=== PATIENT | male | born 1930 | race Caucasian/White ===

== ENCOUNTER 2016-10-21 02:33 | Inpatient (IN) | payer OTHER ==
[~2016-10-21] VITALS: Ht 172.7 cm; Wt 88.1 kg
[2016-10-21] VITALS (9 sets, daily range): BP systolic 116–146; BP diastolic 64–75; PULSE 50–109; TEMP 36.3–36.9; O2SAT 91–97; Ht 172.7 cm; Wt 88.1 kg
[~2016-10-21 02:33] MED LIST: ASCA500 PO; ASPEC325 PO; ATEN50TA8 PO; CHOL100010 PO; EZET10TA41 PO; FLM4 PO; GARLIQUE; HYDC25 PO; LISI40TA PO; OMEG10007 PO; SAW PALMETTO; VITA400C15 PO; VITAMIN B COMPLEX; VITATAB19
[2016-10-21] MEDS ORDERED: ASPIRIN 324 MG CHEW PO STA (02:44)
[2016-10-21] MEDS ORDERED: NITROGLYCERIN 0.4 MG SL PER TAB CHARGE SL STA (02:44)
[2016-10-21] MEDS ORDERED: NITROGLYCERIN OINT 2% 1GM PACKET EXT ONE (02:45)
[2016-10-21 03:04] LABS: BASO % 0.7 %; BASO ABS # 0.05 K/uL (0-0.2); COMPLETE YES; EOS % 3.7 %; HEMATOCRIT 41.3 % (42-52); IG% 0.3 %; LYMPH % 33.7 %; LYMPH ABS # 2.58 K/uL (1.2-3.4); MEAN CELL VOLUME 92.8 fL (80-100); MEAN CORPUSCULAR HEMOGLOBIN 29.4 pg (25-34); MEAN CORPUSCULAR HGB CONC 31.7 g/dl (32-36); MEAN PLATELET VOLUME 9.1 fL (7.4-10.4); MONO % 9.1 %; NEUT % 52.5 %; PLATELET COUNT 211 K/uL (130-400); RED BLOOD COUNT 4.45 M/uL (4.7-6.1); WHITE BLOOD COUNT 7.66 K/uL (4.8-10.8)
[2016-10-21 03:15] LABS: ISTAT CREATININE 1.2 mg/dl (0.6-1.3); ISTAT HEMOGLOBIN 13.3 g/dl (14.0-18.0); ISTAT IONIZED CALCIUM 1.27 mmol/l (1.12-1.32)
[2016-10-21 03:15] LABS: BUN/CREATININE RATIO 22.8 (10-20); CALCIUM 9.1 mg/dl (8.5-10.1); CREATININE 1.3 mg/dl (0.60-1.40); POTASSIUM 4.2 mmol/L (3.5-5.1)
[2016-10-21 03:18] LABS: POINT OF CARE TROPONIN I 0.03 ng/ml (0-0.045)
[2016-10-21] MEDS ORDERED: FUROSEMIDE 40 MG/4 ML VIAL IV STA (03:25)
[2016-10-21 03:26] LABS: ALB/GLOB RATIO 1.1 (0.9-2); THYROID STIMULATING HORMONE 9.08 uIu/ml (0.300-4.500)
[2016-10-21] MEDS ORDERED: HYDR12.55 PO (03:56)
[2016-10-21] MEDS ORDERED: ATOR-24 PO (03:56)
[2016-10-21] MEDS ORDERED: ASPI325T45 PO (03:56)
[2016-10-21] MEDS ORDERED: TAMS0.4C38 PO (03:56)
[2016-10-21] MEDS ORDERED: LEVALBUTEROL/IPRATROPIUM NEB INH STA (03:58)
[2016-10-21] MEDS ORDERED: LEVALBUTEROL/IPRATROPIUM NEB INH PRN (04:00)
[2016-10-21] MEDS ORDERED: IPRATROPIUM BROMIDE NEB SOLN 0.02% 2.5 ML VIAL INH STA (04:02)
[2016-10-21] MEDS ORDERED: LEVALBUTEROL 1.25MG/0.5ML NEB INH STA (04:02)
[2016-10-21] MEDS ORDERED: LEVALBUTEROL 1.25MG/0.5ML NEB INH PRN (04:15)
[2016-10-21] MEDS ORDERED: IPRATROPIUM BROMIDE NEB SOLN 0.02% 2.5 ML VIAL INH PRN (04:15)
[2016-10-21 04:55] LABS: ARTERIAL BLD GAS O2 SATURATION 95.7 % (90-95); ARTERIAL BLOOD GAS BASE EXCESS 3.8 mEq/L (-9-1.8); ARTERIAL BLOOD GAS HCO3 31 mmol/L (19-24); ARTERIAL BLOOD GAS PO2 84 mm/Hg (80-95); ARTERIAL BLOOD GAS pH 7.36 (7.35-7.45)
[2016-10-21 04:56] LABS: ALLEN TEST POS (POS); O2 ADMINISTRATION 4 L
[2016-10-21] MEDS ORDERED: MoRPHine SULFATE 4 MG/ML 1 ML CARP\\VIAL IV PRN (05:15)
[2016-10-21] MEDS ORDERED: PROMETHAZINE HCL INJ 12.5 MG in SODIUM CHLORIDE 0.9% 50ML 50 ML IV PRN (05:15)
[2016-10-21] MEDS ORDERED: TRAMADOL HCL 50 MG TAB PO PRN (05:15)
[2016-10-21] MEDS ORDERED: ACETAMINOPHEN 325 MG TAB PO PRN (05:15)
--- NOTE | 2016-10-21 05:22 | EMERGENCY ROOM VISIT NOTE ---
History First contact with patient: 02:38 Chief Complaint: CHEST PAIN Stated Complaint: CHEST PAIN Nursing Triage Summary: pt brought to main ED by ALS services for chest pain and difficulty breathing. ALS reports pt was woken from sleep approx 1am by cp/sob. pt reports "I don't sleep well anyway." ALS reports pt was 86% on RA and edema in bilateral lower legs. pt does not have home oxygen. denies hx of CHF. pt states he does not have chest pain at this time. pt states "I may have had a heart attack in the past. I don't know." pt alert and oriented x4. breathing regularly and independently, use of accessory muscles. pt denies pain at this time. History of Present Illness The patient is a 86 year old male who presents to the Emergency Room with complaints of left-sided chest pain and shortness of breath that began approximately 60 minutes prior to arrival. The patient states that his discomfort awoke him from sleep. He did contact EMS, and on arrival he was 86% on room air. The patient does not use home oxygen. He has a history of cardiac disease but not COPD or CHF. He has had some swelling into his bilateral lower legs for the past few days. He does not report recent fever or chills. No coughing. He does not have abdominal pain or difficulty using the bathroom. He rates his discomfort a 7/10, dull, nonradiating. Review of Systems More than 10 systems were reviewed and otherwise negative with the exception of history of present illness. Past Medical/Surgical History Medical Problems: (1) Respiratory failure, acute Family History No pertinent family history Social History Smoking Status: Former Smoker Current/Historical Medications Scheduled Aspirin (Aspirin), 325 MG PO DAILY Atenolol (Tenormin), 50 MG PO DAILY Atorvastatin (Lipitor), 40 MG PO DAILY Hydrochlorothiazide (Hydrochlorothiazide), 1 TAB PO DAILY Lisinopril (Zestril), 40 MG PO HS Tamsulosin Hcl (Flomax), 0.4 MG PO DAILY Allergies Coded Allergies: Niacin (Verified Allergy, Unknown, `, 07/14/11) Physical Exam Vital Signs Date Time Temp Pulse Resp B/P Pulse Ox O2 Delivery O2 Flow Rate FiO2 10/21/16 04:22 109 22 95 Nasal Cannula 4.0 10/21/16 04:12 103 23 153/80 96 Nasal Cannula 4.0 10/21/16 03:42 111 23 169/90 97 Nasal Cannula 4.0 10/21/16 03:10 119 28 162/91 97 Nasal Cannula 4.0 10/21/16 02:53 97 Nasal Cannula 2.0 10/21/16 02:48 97 Nasal Cannula 4.0 10/21/16 02:47 86 Room Air 10/21/16 02:47 36.9 106 28 158/85 86 Room Air 10/21/16 02:42 112 Physical Exam VITALS: Vitals are noted on the nurse's note and reviewed by myself. Vital signs stable. GENERAL: White male who is seated comfortably in his ER bed. He is on a nasal cannula and is answering questions appropriately. HEART: Tachycardic rate with regular rhythm LUNGS: Coarse breath sounds with scattered crackles in the bilateral lower muro. Upper muro sound diminished ABDOMEN: Positive normal bowel sounds x 4. Soft, nontender, without masses or organomegaly. No guarding or rebound tenderness. MUSCULOSKELETAL: 3+ pretibial edema appreciated bilateral. NEURO: Patient was alert and oriented to person place and time. CN II through XII grossly intact. Medical Decision & Procedures Laboratory Results 10/21/16 02:21 Red Blood Count 4.45, Mean Corpuscular Volume 92.8, Mean Corpuscular Hemoglobin 29.4, Mean Corpuscular Hemoglobin Concent 31.7, Mean Platelet Volume 9.1, Neutrophils (%) (Auto) 52.5, Lymphocytes (%) (Auto) 33.7, Monocytes (%) (Auto) 9.1, Eosinophils (%) (Auto) 3.7, Basophils (%) (Auto) 0.7, Neutrophils # (Auto) 4.03, Lymphocytes # (Auto) 2.58, Monocytes # (Auto) 0.70, Eosinophils # (Auto) 0.28, Basophils # (Auto) 0.05 10/21/16 02:21 Test 10/21/16 02:21 10/21/16 02:44 10/21/16 02:58 10/21/16 03:02 White Blood Count 7.66 K/uL (4.8-10.8) Red Blood Count 4.45 M/uL (4.7-6.1) Hemoglobin 13.1 g/dL (14.0-18.0) Hematocrit 41.3 % (42-52) Mean Corpuscular Volume 92.8 fL (80-100) Mean Corpuscular Hemoglobin 29.4 pg (25-34) Mean Corpuscular Hemoglobin Concent 31.7 g/dl (32-36) Platelet Count 211 K/uL (130-400) Mean Platelet Volume 9.1 fL (7.4-10.4) Neutrophils (%) (Auto) 52.5 % Lymphocytes (%) (Auto) 33.7 % Monocytes (%) (Auto) 9.1 % Eosinophils (%) (Auto) 3.7 % Basophils (%) (Auto) 0.7 % Neutrophils # (Auto) 4.03 K/uL (1.4-6.5) Lymphocytes # (Auto) 2.58 K/uL (1.2-3.4) Monocytes # (Auto) 0.70 K/uL (0.11-0.59) Eosinophils # (Auto) 0.28 K/uL (0-0.5) Basophils # (Auto) 0.05 K/uL (0-0.2) RDW Standard Deviation 53.3 fL (36.4-46.3) RDW Coefficient of Variation 15.7 % (11.5-14.5) Immature Granulocyte % (Auto) 0.3 % Immature Granulocyte # (Auto) 0.02 K/uL (0.00-0.02) Est Creatinine Clear Calc Drug Dose 45.6 ml/min Estimated GFR () 57.7 Estimated GFR (Non- 49.8 BUN/Creatinine Ratio 22.8 (10-20) Calcium Level 9.1 mg/dl (8.5-10.1) Magnesium Level 2.0 mg/dl (1.8-2.4) Total Bilirubin 0.4 mg/dl (0.2-1) Aspartate Amino Transf (AST/SGOT) 70 U/L (15-37) Alanine Aminotransferase (ALT/SGPT) 70 U/L (12-78) Alkaline Phosphatase 105 U/L (45-117) Troponin I 0.034 ng/ml (0-0.045) Total Protein 7.1 gm/dl (6.4-8.2) Albumin 3.7 gm/dl (3.4-5.0) Globulin 3.4 gm/dl (2.5-4.0) Albumin/Globulin Ratio 1.1 (0.9-2) Lipase 136 U/L (73-393) Thyroid Stimulating Hormone (TSH) 9.080 uIu/ml (0.300-4.500) Free Thyroxine 0.94 ng/dl (0.80-1.60) Bedside Troponin I 0.030 ng/ml (0-0.045) FT-Jdu-J-Type Natriuretic Peptide 4784 pg/ml (0-1800) Bedside Hemoglobin 13.3 g/dl (14.0-18.0) Bedside Hematocrit 39 % (42-52) Bedside Sodium 146 mEq/L (135-144) Bedside Potassium 4.1 mEq/L (3.3-5.0) Bedside Chloride 103 mEq/L (101-112) Bedside Total CO2 29 mEq/l (24-31) Anion Gap 19.0 mmol/L (16-25) Bedside Blood Urea Nitrogen 31 mg/dl (7-18) Bedside Creatinine 1.2 mg/dl (0.6-1.3) Bedside Glucose (other) 139 mg/dl (70-99) Bedside Ionized Calcium (Stormy) 1.27 mmol/l (1.12-1.32) Test 10/21/16 04:38 Medications Administered Medications (Trade) Dose Ordered Sig/Kael Route Start Time Stop Time Status Last Admin Dose Admin Nitroglycerin (Nitroglycerin 2% Oint) 1 inch NOW ONCE EXT 10/21/16 02:45 10/21/16 02:48 DC 10/21/16 03:09 1 INCH Nitroglycerin (Nitrostat Tab) 0.4 mg NOW STAT SL 10/21/16 02:44 10/21/16 02:48 DC 10/21/16 03:07 0.4 MG Furosemide (Lasix Inj) 40 mg NOW STAT IV 10/21/16 03:25 10/21/16 03:26 DC 10/21/16 03:35 40 MG Atenolol (Tenormin Tab) 50 mg 0402 STAT PO 10/21/16 04:02 10/21/16 04:03 DC 10/21/16 04:18 50 MG Ipratropium Waldron (Atrovent 0.02% 0.5MG/2.5ML Neb) 0.5 mg NOW STAT INH 10/21/16 04:02 10/21/16 04:03 DC 10/21/16 04:22 0.5 MG Levalbuterol (Xopenex 1.25MG/ 0.5ML Neb) 1.25 mg NOW STAT INH 10/21/16 04:02 10/21/16 04:03 DC 10/21/16 04:22 1.25 MG ED Course Physical exam and history were performed. Nursing notes and EMR were reviewed. Patient appears to have left-sided chest pain and shortness of breath for the past roughly 1 hour. The patient was hypoxic on EMS presentation to his home. Now that he is here and has oxygen he is much more comfortable. IV access was established and labs were obtained. The case was discussed with my attending physician, Dr. Bosch, who remained closely involved in patient care and decision making. The patient was medicated as above and chest x-ray was obtained. EKG was sinus tachycardia at 109 bpm with PVC's, right bundle branch block, and age indeterminant lateral infarct. EKG is with significant changes when compared to EKG of 07/19/2007 The patient's blood work is as above. He does not have a significant elevated white blood cell count. He is mildly anemic. There is no gross electrolyte imbalance. His troponin 1 is negative here in the department. The patient's BNP was elevated at nearly 5000. He was given 40 mg IV Lasix. Overall the patient does not appear stable for discharge home. He appears to be in acute respiratory failure. The case was discussed with the on-call hospitalist, Dr. Traore, who agrees to evaluate the patient here in the emergency department. Please see Dr. Traore's dictation for patient course, plan, and disposition. The chart was completed utilizing [employer] Voice Recognition Software. Grammatical errors, random word insertions, pronoun errors, and incomplete sentences are an occasional consequence of this system due to software limitations, ambient noise, and hardware issues. Any formal questions or concerns about the content, text, or information contained within the body of this dictation should be directly addressed to the provider for clarification. . Medical Decision Differential diagnosis includes, but is not limited to: Myocardial infarction, dysrhythmia, pericarditis, pneumothorax, aortic aneurysm/dissection, DVT/PE, anxiety, GERD, PUD, electrolyte imbalance, thyroid disorder, pneumonia, bronchitis, pancreatitis, and others Impression Primary Impression: Respiratory failure, acute Departure Information Referrals Elton Torres III, M.D. (PCP) Patient Instructions [facility]
--- NOTE | 2016-10-21 05:24 | EMERGENCY ROOM VISIT NOTE ---
ED Visit Note First contact with patient: 02:38 I have personally evaluated and examined this patient. I agree with assessment and plan of Kehinde Olea PA-C. 86 yr old male with acute chest pain and SHOB. Exam consistent with acute CHF exacerbation. EKG with lateral ST depressions though no STEMI. EKG is acutely changed from previous but that was 9 yrs ago.
[2016-10-21 05:53] LABS: URINE APPEARANCE CLEAR (CLEAR); URINE BILIRUBIN NEG (NEG); URINE COLOR YELLOW; URINE EPITHELIAL CELL AUTO 0-5 /lpf (0-5); URINE NITRITE NEG (NEG); URINE SPECIFIC GRAVITY 1.014 (1.000-1.030); UROBILINOGEN NEG (NEG); ZZUR CULT IF INDIC CLEAN CATCH YES
[2016-10-21 05:58] LABS: MANUAL MICROSCOPIC REQUIRED? NO; REVIEW REQ? NO
[2016-10-21 06:45] LABS: PARTIAL THROMBOPLASTIN RATIO 1.1; PROTHROMBIN TIME (PATIENT) 10.5 SECONDS (9.0-12.0)
--- NOTE | 2016-10-21 06:51 | HISTORY & PHYSICAL EXAMINATION ---
DATE OF ADMISSION: 10/21/2016 PRIMARY CARE DOCTOR: Dr. Torres History was obtained from the patient and records. CHIEF COMPLAINT: Shortness of breath. HISTORY OF PRESENT ILLNESS: Medical history is significant for silent heart attack as per patient, hypertension, past tobacco abuse, urolithiasis and PVD status post surgery. Recent confinement was under Vascular Surgery service last July 2011 for L carotid stenosis sp CEA. 2D echo at that time showed an EF of 55-60%, LVH. Akinetic inferior wall consistent with prior infarct. In the few weeks, patient noted intermittent ni ankle swelling, some abdominal distention, transient shortness of breath especially on exertion and orthopnea. Px mentioned the intermittent ankle swelling to the PCP on last visit last month. Last night, the patient woke up from sleep with central chest tightness, non- radiating, shortness of breath and usual cough symptoms productive of white sputum. At the Emergency Room, the patient received Lasix and nitropaste for CHF. MEDICAL HISTORY: As above. 2004 colonoscopy; diverticulosis and polyps. SURGERIES: Carotid endarterectomy and cataract surgery. HOME MEDICATIONS: Include; aspirin, atenolol, Lipitor, HCTZ, lisinopril and Flomax. ALLERGIES: TO NIACIN. FAMILY HISTORY: Diabetes. PERSONAL AND SOCIAL HISTORY: Past tobacco abuse. No chronic intake of alcoholic beverages. Retired [employer]. REVIEW OF SYSTEMS: As per HPI. All other ROS negative. PHYSICAL EXAMINATION: VITAL SIGNS: Blood pressure was noted to be 158/85, pulse rate 106, RR 28, temperature 36.9 and sats 86 on room air, later 97 on four liters. GENERAL: Noted to be obese, min respiratory distress. SKIN: Pallor. HEENT: Alopecia. Pale palpebral conjunctivae. Dry mucosa. Nasal cannula is in place. NECK: Short neck. LUNGS: Decreased breath sounds. HEART: Tachycardic. ABDOMEN: Some distension. NT EXTREMITIES: Bilateral lower extremity edema. no tenderness NEUROLOGIC: No gross focality except for some L facial asymmetry (? duration). LABORATORIES: Hemoglobin 13 hematocrit 41.3 white cell count of 7.66 and platelets noted to be 211. Sodium noted to be 147, potassium 4.2, chloride 109, CO2 32, BUN 30, creatinine 1.3 and glucose 134. trop 0.034 ABG, pH 7.36, pCO2 of 55, pO2 84 95% on 4 liters Chest x-ray as per my interpretation : cardiomegaly, congestion EKG as per my interpretation : rate 110, sinus tachycardia, left axis deviation , LAFB, RBBB, Q-waves in the inferior leads, PRWP ASSESSMENT: 1. Acute hypoxemic resp failure 2 to congestive heart failure symptoms brewing over the last few weeks. 2. History of silent myocardial infarction as per patient. 3. hx peripheral vascular disease status post surgery 4. hypertension, slightly elevated 5. hyperlipidemia on statin therapy 6. anemia (baseline outpx Hg of 14 from 12/2011) 7. past tobacco abuse. PLAN: PCU supplemental O2. Nebs p.r.n. diuretic therapy continue home BB, ACEI 2D echo RE CHF. strict IOs. Daily weights. Cardiology consult for CHF. The patient known to Dr. Fraga. Anemia workup. DVT prophylaxis, Lovenox subQ. Full code. MTDD
--- NOTE | 2016-10-21 07:18 | DIAGNOSTIC IMAGING REPORT ---
CHEST ONE VIEW PORTABLE HISTORY: Difficulty breathing. Atypical Chest pain COMPARISON: Chest 07/19/2007. FINDINGS: Cardiac silhouette is mildly enlarged. This is increased in size. There are trace bilateral pleural effusions. Diffuse interstitial and vascular thickening has developed. This likely represents pulmonary edema. No pneumothorax. IMPRESSION: Mild pulmonary edema, trace bilateral pleural effusions, and cardiomegaly. Electronically signed by: Roland Patel M.D. 10/21/2016 7:17 AM Dictated Date/Time: 10/21/2016 7:15 AM
[2016-10-21] MEDS ORDERED: FUROSEMIDE INJ 40 MG in SYRINGE 0 ML IV ONE (09:00)
[2016-10-21] MEDS ORDERED: ATORVASTATIN 40 MG TAB PO SCH (09:00)
[2016-10-21] MEDS ORDERED: ENOXAPARIN 40 MG/0.4 ML SYR SC SCH (09:00)
[2016-10-21] MEDS ORDERED: TAMSULOSIN HCL 0.4 MG CAP PO SCH (09:00)
[2016-10-21] MEDS ORDERED: ASPIRIN 325 MG ECTAB PO SCH (09:00)
--- NOTE | 2016-10-21 09:59 | ECHOCARDIOGRAM REPORT ---
*NOTICE TO RECEIVING REPUBLICAN AGENCY This information is strictly Confidential and protected under [place] law. [place] law prohibits you from making any further disclosure of this information unless further disclosure is expressly permitted by the written consent of the person to whom it pertains or is authorized by law. A general authorization for the release of medical or other information is not sufficient for this purpose. Hospital accepts no responsibility if the information is made available to any other person, INCLUDING THE PATIENT. Interpretation Summary * Name: WYATT MCCARTNEY Study Date: 10/21/2016 06:38 AM BP: 146/73 mmHg * Patient Location: C.2T\S\S229\S\1 HR: 80 * : 1930 (M/d/yyy) Gender: Male Height: 68 in * Age: 86 yrs Ethnicity: CA Weight: 201 lb * Ordering Physician: Rizwan Traore * Referring Physician: Self, Referred * Performed By: Italia Dorsey RDCS * * Reason For Study: CHF * BSA: 2.0 m2 * The study was technically adequate. * Compared to prior study, changes are noted. * -- Conclusions -- * Left ventricular systolic function is severely reduced. * Ejection Fraction = 20-25%. * There is posterior wall akinesis. * There is inferior wall akinesis. * The septum is severely hypokinertic to akinetic. * The remaining wall segments are hypokinetic. * There is moderate mitral regurgitation. * There is mild tricuspid regurgitation. * The estimated systolic PAP is 52mmHg. Procedure Details * A contrast injection of Definity was performed to improve assessment of LV function. * Contrast was injected into an intravenous site in the left arm. * One vial of Definity ultrasound contrast was diluted in normal saline to a total volume of 10 ml. A total of '2' ml of solution was administered during imaging. * Lot # [id number] of Definity utilized for procedure. * Expiration date SEP 30. * The attending nurse who injected the contrast agent was SAW HAYNES RN. Left Ventricle * The left ventricle is moderately dilated. * There is no thrombus. * The LV wall thickness is mildly increased in segments with normal wall motion. * Left ventricular systolic function is severely reduced. * Ejection Fraction = 20-25%. * There is posterior wall akinesis. * There is inferior wall akinesis. * The septum is severely hypokinertic to akinetic. The remaining wall segments are hypokinetic. Right Ventricle * The right ventricle is grossly normal size. * The right ventricular systolic function is qualitatively normal. Atria * The left atrium is moderately dilated. * The right atrium is mildly dilated. Mitral Valve * There is mild mitral annular calcification. * There is no mitral valve stenosis. * There is moderate mitral regurgitation. Tricuspid Valve * The tricuspid valve anatomy is normal. * There is no tricuspid stenosis. * There is mild tricuspid regurgitation. * The estimated systolic PAP is 52mmHg. Aortic Valve * The aortic valve is not well visualized. * Aortic valve sclerosis mild, without significant aortic valvular stenosis. * No hemodynamically significant valvular aortic stenosis. * Mild aortic regurgitation. Pulmonic Valve * The pulmonary valve is inadequately visualized, but the Doppler data is adequate for interpretation. * There is no pulmonic valvular stenosis. * Mild pulmonic valvular regurgitation. Great Vessels * The aortic root is normal size. Pericardium/Pleural * There is no pericardial effusion. Great Vessels * Normal inferior vena cava size and collapsability with sniff indicates a normal right atrial pressure of 3 mmHg Left Ventricular Diastolic Function * Grade I diastolic dysfunction, (abnormal relaxation pattern). MMode 2D Measurements and Calculations IVSd 1.6 cm IVSs 2.1 cm LVIDd 6.1 cm LVIDs 5.3 cm LVPWd 0.68 cm LVPWs 0.70 cm IVS/LVPW 2.3 FS 11.9 % EDV(Teich) 183.8 ml ESV(Teich) 137.2 ml EF(Teich) 25.3 % EDV(cubed) 221.9 ml ESV(cubed) 151.6 ml EF(cubed) 31.7 % % IVS thick 37.6 % % LVPW thick 3.5 % LV mass(C)d 289.5 grams LV mass(C)dI 141.3 grams/m\S\2 LV mass(C)s 328.6 grams LV mass(C)sI 160.4 grams/m\S\2 SV(Teich) 46.5 ml SI(Teich) 22.7 ml/m\S\2 SV(cubed) 70.3 ml SI(cubed) 34.3 ml/m\S\2 LVAd ap4 50.1 cm\S\2 LVLd ap4 9.9 cm EDV(MOD-sp4) 209.6 ml EDV(sp4-el) 215.2 ml LVAs ap4 40.8 cm\S\2 LVLs ap4 9.2 cm ESV(MOD-sp4) 147.6 ml ESV(sp4-el) 152.7 ml EF(MOD-sp4) 29.6 % EF(sp4-el) 29.1 % LVAd ap2 48.8 cm\S\2 LVLd ap2 9.9 cm EDV(MOD-sp2) 198.3 ml EDV(sp2-el) 203.2 ml LVAs ap2 40.6 cm\S\2 LVLs ap2 9.3 cm ESV(MOD-sp2) 147.3 ml ESV(sp2-el) 150.1 ml EF(MOD-sp2) 25.7 % EF(sp2-el) 26.1 % LVLd %diff 0.19 % EDV(MOD-bp) 203.7 ml LVLs %diff 0.84 % ESV(MOD-bp) 148.2 ml EF(MOD-bp) 27.2 % SV(MOD-sp4) 61.9 ml SI(MOD-sp4) 30.2 ml/m\S\2 SV(MOD-sp2) 50.9 ml SI(MOD-sp2) 24.9 ml/m\S\2 SV(MOD-bp) 55.5 ml SI(MOD-bp) 27.1 ml/m\S\2 SV(sp4-el) 62.6 ml SI(sp4-el) 30.5 ml/m\S\2 SV(sp2-el) 53.0 ml SI(sp2-el) 25.9 ml/m\S\2 Doppler Measurements and Calculations MV E max ramya 76.6 cm/sec MV A max ramya 103.3 cm/sec MV E/A 0.74 MV dec time 0.18 sec Ao V2 max 121.6 cm/sec Ao max PG 5.9 mmHg Ao max PG (full) 4.3 mmHg LV V1 max PG 1.6 mmHg LV V1 max 63.1 cm/sec TR max ramya 351.6 cm/sec
[2016-10-21 11:10] LABS: FERRITIN 24.2 ng/ml (8.0-388.0)
--- NOTE | 2016-10-21 12:52 | Cardiology Consultation ---
Cardiology Consultation Date of Service October 21, 2016. (Veronique Ferris, IGNACIO) Cardiology Consultation Cardiology Consultation: Reason: Hypoxia/CHF Consulting Physician: Dr. Kilgore Attending Physician: Dr. Fraga HPI: Srinivas is a 86-year-old male who has a past medical history significant for silent AL, dating back to 2007 noted on echocardiogram with posteroinferior hypokinesis, and abnormal nuclear stress test in 2010 with larger inferior/ posterior scar. Med management recommended. He has updated 2D echo in 2012 during admission post left CEA demonstrating preserved LV function. He has not followed with cardiology on a regular basis. PCP is Dr. Torres. Other history includes hypertension, carotid stenosis, dyslipidemia, and obesity. Patient was admitted last evening with respiratory failure/hypoxia suggestive of acute heart failure exacerbation with evidence of volume overload. He was started on IV diuretic therapy and supplemental O2. Over the last month, patient noted worsening dyspnea with exertional activities , orthopnea/PND with difficulty sleeping at night due to SOB, LE edema and weight gain. He denied recent or recurrent chest pain. No dizziness, syncope or near syncope. States he has been taking all meds as prescribed as outpatient. He has been on HCTZ for diuretic therapy and BP control. At time of consult, patient feeling better. Still with LE edema and mild dyspnea when ambulating in room, but improved from admission. No cough, fever, chills. Orthopnea improved last night. He noted mild chest pain when in ER last night, but symptoms improved with oxygen supplementation. He participated in PT /OT this AM without complaints. REVIEW OF SYSTEMS: Pertinent positives noted above. Otherwise a 10-point system review is unremarkable. PAST MEDICAL HISTORY: 1. 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 2. Ischemic cardiomyopathy. Ejection fraction by nuclear study estimated at 35% with inferior hypokinesis in 2010. Preserved LV function per repeat echo in 2011. 3. Hypertension. 4. Dyslipidemia. 5. Obesity. 6. Carotid stenosis. 7. Actinic keratosis. SOCIAL HISTORY: Prior tobacco abuse x 55 years, quit in 2007. No alcohol use. FAMILY HISTORY: Noncontributory. ALLERGIES: No known drug allergies. Reported Home Medications Medications Dose Route/Sig Max Daily Dose Days Date Category Aspirin 325 Mg Tab 325 Mg PO DAILY 10/21/16 Reported Lipitor (Atorvastatin Calcium) 40 Mg Tab 40 Mg PO DAILY 10/21/16 Reported Flomax (Tamsulosin Hcl) 0.4 Mg Cap 0.4 Mg PO DAILY 10/21/16 Reported Hydrochlorothiazide 12.5 Mg Tab 1 Tab PO DAILY 90 10/21/16 Reported Zestril (Lisinopril) 40 Mg Tab 40 Mg PO HS 07/19/07 Reported Tenormin (Atenolol) 50 Mg Tab 50 Mg PO DAILY 07/19/07 Reported PHYSICAL EXAM: Last 8 Hrs Date Time Temp Pulse Resp B/P Pulse Ox O2 Delivery O2 Flow Rate FiO2 10/21/16 11:25 Nasal Cannula 4.0 10/21/16 11:08 36.3 61 20 125/70 97 Nasal Cannula 4.0 10/21/16 10:02 68 96 10/21/16 07:49 36.9 66 20 125/64 91 Nasal Cannula 4.0 10/21/16 07:25 Nasal Cannula 4.0 10/21/16 06:05 36.7 80 20 146/73 93 Nasal Cannula 4.0 10/21/16 06:05 36.7 80 20 146/73 93 Nasal Cannula 4.0 10/21/16 05:38 84 20 150/65 97 10/21/16 05:30 95 20 150/65 97 Nasal Cannula 4.0 10/21/16 05:00 94 20 150/66 95 Nasal Cannula 4.0 GENERAL: NAD, awake, alert, and oriented x3. Obese. NECK: Supple without overt JVD in the upright position. HEART: Regular with a normal S1 and S2. There is no audible murmur, rub or gallop. LUNGS: Decreased breath sounds with faint rales b/l. ABDOMEN: Soft and nontender. No organomegaly or bruit. Positive bowel sounds. EXTREMITIES: 1+ pretibial edema NEUROLOGIC: Demonstrates no gross motor deficit. DATA: Echocardiogram reviewed, per report: * Compared to prior study, changes are noted. * -- Conclusions -- * Left ventricular systolic function is severely reduced. * Ejection Fraction = 20-25%. * There is posterior wall akinesis. * There is inferior wall akinesis. * The septum is severely hypokinetic to akinetic. * The remaining wall segments are hypokinetic. * There is moderate mitral regurgitation. * There is mild tricuspid regurgitation. * The estimated systolic PAP is 52mmHg EKGs reviewed on admission Sinus tachycardia with occasional Premature ventricular complexes and Fusion complexes Left axis deviation Right bundle branch block Possible Lateral infarct , age undetermined Inferior infarct (cited on or before 19-JUN-2005) Abnormal ECG When compared with ECG of 19-JUL-2007 13:21, Fusion complexes are now Present Premature ventricular complexes are now Present Telemetry reviewed - NSR with IVCD and PVC's. No sustained arrhythmias. Chest xray on admission - IMPRESSION: Mild pulmonary edema, trace bilateral pleural effusions, and cardiomegaly. Last 24 Hours Test 10/21/16 02:21 10/21/16 02:58 10/21/16 03:02 10/21/16 04:29 White Blood Count 7.66 K/uL Red Blood Count 4.45 M/uL Hemoglobin 13.1 g/dL Hematocrit 41.3 % Mean Corpuscular Volume 92.8 fL Mean Corpuscular Hemoglobin 29.4 pg Mean Corpuscular Hemoglobin Concent 31.7 g/dl Platelet Count 211 K/uL Mean Platelet Volume 9.1 fL Neutrophils (%) (Auto) 52.5 % Lymphocytes (%) (Auto) 33.7 % Monocytes (%) (Auto) 9.1 % Eosinophils (%) (Auto) 3.7 % Basophils (%) (Auto) 0.7 % Neutrophils # (Auto) 4.03 K/uL Lymphocytes # (Auto) 2.58 K/uL Monocytes # (Auto) 0.70 K/uL Eosinophils # (Auto) 0.28 K/uL Basophils # (Auto) 0.05 K/uL RDW Standard Deviation 53.3 fL RDW Coefficient of Variation 15.7 % Immature Granulocyte % (Auto) 0.3 % Immature Granulocyte # (Auto) 0.02 K/uL Sodium Level 147 mmol/L Potassium Level 4.2 mmol/L Chloride Level 109 mmol/L Carbon Dioxide Level 32 mmol/L Anion Gap 6.0 mmol/L 19.0 mmol/L Blood Urea Nitrogen 30 mg/dl Creatinine 1.30 mg/dl Est Creatinine Clear Calc Drug Dose 45.6 ml/min Estimated GFR () 57.7 Estimated GFR (Non- 49.8 BUN/Creatinine Ratio 22.8 Random Glucose 134 mg/dl Calcium Level 9.1 mg/dl Magnesium Level 2.0 mg/dl Total Bilirubin 0.4 mg/dl Aspartate Amino Transf (AST/SGOT) 70 U/L Alanine Aminotransferase (ALT/SGPT) 70 U/L Alkaline Phosphatase 105 U/L Troponin I 0.034 ng/ml Total Protein 7.1 gm/dl Albumin 3.7 gm/dl Globulin 3.4 gm/dl Albumin/Globulin Ratio 1.1 Lipase 136 U/L Thyroid Stimulating Hormone (TSH) 9.080 uIu/ml Free Thyroxine 0.94 ng/dl Bedside Troponin I 0.030 ng/ml AC-[id number]-Type Natriuretic Peptide 4784 pg/ml Bedside Hemoglobin 13.3 g/dl Bedside Hematocrit 39 % Bedside Sodium 146 mEq/L Bedside Potassium 4.1 mEq/L Bedside Chloride 103 mEq/L Bedside Total CO2 29 mEq/l Bedside Blood Urea Nitrogen 31 mg/dl Bedside Creatinine 1.2 mg/dl Bedside Glucose (other) 139 mg/dl Bedside Ionized Calcium (Stormy) 1.27 mmol/l Prothrombin Time 10.5 SECONDS Prothromb Time International Ratio 1.0 Activated Partial Thromboplast Time 27.7 SECONDS Partial Thromboplastin Ratio 1.1 Test 10/21/16 04:38 10/21/16 05:40 10/21/16 10:00 10/21/16 10:30 Arterial Blood pH 7.36 Arterial Blood Partial Pressure CO2 55 mmHg Arterial Blood Partial Pressure O2 84 mm/Hg Arterial Blood HCO3 31 mmol/L Arterial Blood Oxygen Saturation 95.7 % Arterial Blood Base Excess 3.8 mEq/L Arterial Blood Gas Delivery 4 L Ronald Test POS Urine Color YELLOW Urine Appearance CLEAR Urine pH 5.0 Urine Specific [place] 1.014 Urine Protein NEG Urine Glucose (UA) NEG Urine Ketones NEG Urine Occult Blood 1+ Urine Nitrite NEG Urine Bilirubin NEG Urine Urobilinogen NEG Urine Leukocyte Esterase MODERATE Urine WBC (Auto) >30 /hpf Urine RBC (Auto) 5-10 /hpf Urine Hyaline Casts (Auto) 1-5 /lpf Urine Epithelial Cells (Auto) 0-5 /lpf Urine Bacteria (Auto) 2+ Transferrin % Saturation % 18 % Absolute Reticulocyte Count 0.10 10^6/uL Percent Reticulocyte Count 2.1 % Iron Level 64 mcg/dl Total Iron Binding Capacity 323 mcg/dl Transferrin 255 mg/dl Ferritin 24.2 ng/ml Troponin I 2.720 ng/ml Vitamin B12 Level 1792 pg/mL Folate > 24.00 ng/mL Prior data reviewed - Echocardiogram during admission in 2011: Left ventricular systolic function is normal. Ejection Fraction = 55-60%. There is borderline concentric left ventricular hypertrophy. There are regional wall motion abnormalities as specified. There is mild to moderate mitral regurgitation. There is mild tricuspid regurgitation. Right ventricular systolic pressure is elevated at 40-50mmHg. Grade I diastolic dysfunction, ( abnormal relaxation pattern). Nuclear Lexiscan in 2010 completed at [facility]- extensive inferior and posterior scar with a calculated ejection fraction of 30 to 35% FINAL IMPRESSIONS: 1. Respiratory failure/ acute hypoxia secondary to Acute systolic HF exacerbation with evidence of volume overload on exam 2. Likely ischemic cardiomyopathy with interval decline in LV function, EF currently 20-25%, last echo in 2011 was normal. Repeat troponin this AM elevated at 2. Likely demand ischemia. 3. History of silent inferior AL, noted on echo/nuclear scan dating back to 2007. Given he was asymptomatic and nuclear Lexiscan with old scar and no inducible ischemia, med management recommended at that time. 4. Hypertension 5. Former tobacco abuse. 5. Dyslipidemia. 6. Obesity. PLAN AND RECOMMENDATIONS: Patient currently asymptomatic. Repeat IV furosemide 40 mg today. Monitor I+O's. Discontinue atenolol in favor of evidence based beta becky, Toprol XL 50 mg daily. Continue lisinopril. Likely will need furosemide on discharge in place of HCTZ. Need to consider ischemic work up once volume status has improved. Case discussed with Dr. Fraga. Will follow. (Veronique Ferris, PA-C) Cardiology Attending Physician: Patient seen and examined at the bedside. Patient admits to gradual weight gain and progressive SOB over the past few months. Last night SOB worsened with + orthopnea and PND prompting ED evaluation. Hypoxic upon arrival to ED. Feeling much better after 2 doses of lasix with approximately 1400cc urine output. Offers no complaints currently. Son is present at bedside. PE: VSS. Gen: NAD, AAOx3. Heart: Reg, Normal S1S2. No murmur. Lungs: +Rales B/L at the base. Ext: 2+ pretibial edema. A/P: Agree with above PAThanhC history, physical exam, assessment and plan. Atenolol transitioned to metoprolol. Patient receive 2 doses of lasix today. Will reassess BMP in AM prior to additional diuretic therapy. Mildly elevated troponin likely secondary to acute CHF, hypoxia, demand ischemia. Continue DANILO inhibitor. Will need ischemic evaluation in future when volume status improved and referral to EP for ICD. Ag Fraga DO, FACC (Gilberto Farga, DO)
[2016-10-21] MEDS ORDERED: NURSING DECISION MEDICATION ORDER SCH (13:00)
--- NOTE | 2016-10-21 17:06 | Progress Note ---
Medicine Progress Note Date & Time of Visit: October 21, 2016 at 16:38. Subjective Pt was seen and examined Sitting very comfortable in chair with no distress Pt said that his breathing feels much better today he said that he walked in the hallway today with no discomfort Denies any chest pain, palpitation, dizziness Objective Last 8 Hrs Date Time Temp Pulse Resp B/P Pulse Ox O2 Delivery O2 Flow Rate FiO2 10/21/16 16:00 Nasal Cannula 4.0 10/21/16 15:17 36.3 50 18 116/69 95 Nasal Cannula 3.0 10/21/16 11:25 Nasal Cannula 4.0 10/21/16 11:08 36.3 61 20 125/70 97 Nasal Cannula 4.0 10/21/16 10:02 68 96 Physical Exam: General- No acute distress Head- atraumatic Eyes- PERRL, EOMI ENT- oropharynx clear Neck- supple, no JVD Lungs- Poor air entry Heart- regular rhythm; no murmur Abdomen- normal bowel sounds, soft, nontender Extremities- +edema, no calf tenderness Neuro- alert, oriented x 3; PERRL, EOMI; no facial palsy Skin- warm & dry Laboratory Results: Last 24 Hours Test 10/21/16 02:21 10/21/16 02:58 10/21/16 03:02 10/21/16 04:29 White Blood Count 7.66 K/uL Red Blood Count 4.45 M/uL Hemoglobin 13.1 g/dL Hematocrit 41.3 % Mean Corpuscular Volume 92.8 fL Mean Corpuscular Hemoglobin 29.4 pg Mean Corpuscular Hemoglobin Concent 31.7 g/dl Platelet Count 211 K/uL Mean Platelet Volume 9.1 fL Neutrophils (%) (Auto) 52.5 % Lymphocytes (%) (Auto) 33.7 % Monocytes (%) (Auto) 9.1 % Eosinophils (%) (Auto) 3.7 % Basophils (%) (Auto) 0.7 % Neutrophils # (Auto) 4.03 K/uL Lymphocytes # (Auto) 2.58 K/uL Monocytes # (Auto) 0.70 K/uL Eosinophils # (Auto) 0.28 K/uL Basophils # (Auto) 0.05 K/uL RDW Standard Deviation 53.3 fL RDW Coefficient of Variation 15.7 % Immature Granulocyte % (Auto) 0.3 % Immature Granulocyte # (Auto) 0.02 K/uL Sodium Level 147 mmol/L Potassium Level 4.2 mmol/L Chloride Level 109 mmol/L Carbon Dioxide Level 32 mmol/L Anion Gap 6.0 mmol/L 19.0 mmol/L Blood Urea Nitrogen 30 mg/dl Creatinine 1.30 mg/dl Est Creatinine Clear Calc Drug Dose 45.6 ml/min Estimated GFR () 57.7 Estimated GFR (Non- 49.8 BUN/Creatinine Ratio 22.8 Random Glucose 134 mg/dl Calcium Level 9.1 mg/dl Magnesium Level 2.0 mg/dl Total Bilirubin 0.4 mg/dl Aspartate Amino Transf (AST/SGOT) 70 U/L Alanine Aminotransferase (ALT/SGPT) 70 U/L Alkaline Phosphatase 105 U/L Troponin I 0.034 ng/ml Total Protein 7.1 gm/dl Albumin 3.7 gm/dl Globulin 3.4 gm/dl Albumin/Globulin Ratio 1.1 Lipase 136 U/L Thyroid Stimulating Hormone (TSH) 9.080 uIu/ml Free Thyroxine 0.94 ng/dl Bedside Troponin I 0.030 ng/ml LE-[id number]-Type Natriuretic Peptide 4784 pg/ml Bedside Hemoglobin 13.3 g/dl Bedside Hematocrit 39 % Bedside Sodium 146 mEq/L Bedside Potassium 4.1 mEq/L Bedside Chloride 103 mEq/L Bedside Total CO2 29 mEq/l Bedside Blood Urea Nitrogen 31 mg/dl Bedside Creatinine 1.2 mg/dl Bedside Glucose (other) 139 mg/dl Bedside Ionized Calcium (Stormy) 1.27 mmol/l Prothrombin Time 10.5 SECONDS Prothromb Time International Ratio 1.0 Activated Partial Thromboplast Time 27.7 SECONDS Partial Thromboplastin Ratio 1.1 Test 10/21/16 04:38 10/21/16 05:40 10/21/16 10:00 10/21/16 10:30 Arterial Blood pH 7.36 Arterial Blood Partial Pressure CO2 55 mmHg Arterial Blood Partial Pressure O2 84 mm/Hg Arterial Blood HCO3 31 mmol/L Arterial Blood Oxygen Saturation 95.7 % Arterial Blood Base Excess 3.8 mEq/L Arterial Blood Gas Delivery 4 L Ronald Test POS Urine Color YELLOW Urine Appearance CLEAR Urine pH 5.0 Urine Specific [place] 1.014 Urine Protein NEG Urine Glucose (UA) NEG Urine Ketones NEG Urine Occult Blood 1+ Urine Nitrite NEG Urine Bilirubin NEG Urine Urobilinogen NEG Urine Leukocyte Esterase MODERATE Urine WBC (Auto) >30 /hpf Urine RBC (Auto) 5-10 /hpf Urine Hyaline Casts (Auto) 1-5 /lpf Urine Epithelial Cells (Auto) 0-5 /lpf Urine Bacteria (Auto) 2+ Transferrin % Saturation % 18 % Absolute Reticulocyte Count 0.10 10^6/uL Percent Reticulocyte Count 2.1 % Iron Level 64 mcg/dl Total Iron Binding Capacity 323 mcg/dl Transferrin 255 mg/dl Ferritin 24.2 ng/ml Troponin I 2.720 ng/ml Vitamin B12 Level 1792 pg/mL Folate > 24.00 ng/mL Test 10/21/16 16:02 10/21/16 16:20 Creatine Kinase MB Ratio Date/Time Source Procedure Growth Status 10/21/16 05:40 Urine , Clean Catch Urine Culture Pending Received Assessment & Plan ACUTE HYPOXIC RESPIRATORY FAILURE 2nd TO ACUTE SYSTOLIC HF EXACERBATION cxr showed showed mild pulmonary edema, trace bilateral pleural effusions, and cardiomegaly. 2D ECHO showed: * Left ventricular systolic function is severely reduced. * Ejection Fraction = 20-25%. * There is posterior wall akinesis. * There is inferior wall akinesis. * The septum is severely hypokinertic to akinetic. * The remaining wall segments are hypokinetic. * There is moderate mitral regurgitation. Received 80 mg Lasix IV. Monitor I/O Atenolol changed to metoprolol by cardio clinically improved Cardiology on board ELEVATED TROPONIN Troponin increased above 2. Possible related to demand ischemia denies any chest pain EKG didn't showed any significant ischemic changes will follow 3rd set cardiac marker Continue statin, aspirin and beta becky repeat EKG in am Cardiology on board HTN BP stable continue monitor BP CAROTID STENOSIS stable ABNORMAL UA Asymptomatic, afebrile, no leukocytosis urine culture pending DVT Px on subq lovenox CODE STATUS FULL CODE Consultants: Cardio Current Inpatient Medications: Current Inpatient Medications Medications (Trade) Dose Ordered Sig/Kael Route Start Time Stop Time Status Last Admin Dose Admin Ipratropium [place] (Atrovent 0.02% 0.5MG/2.5ML Neb) 0.5 mg Q4H PRN INH 10/21/16 04:15 11/20/16 04:14 Levalbuterol (Xopenex 1.25MG/ 0.5ML Neb) 1.25 mg Q4H PRN INH 10/21/16 04:15 11/20/16 04:14 Enoxaparin Sodium (Lovenox Inj) 40 mg Q24H SC 10/21/16 09:00 11/20/16 08:59 10/21/16 10:53 40 MG Acetaminophen (Tylenol Tab) 650 mg Q4H PRN PO 10/21/16 05:15 11/20/16 05:14 Nitroglycerin (Nitrostat Tab) 0.4 mg UD PRN SL 10/21/16 05:15 11/20/16 05:14 Lisinopril 40 mg 40 mg HS PO 10/21/16 21:00 11/20/16 20:59 Promethazine HCl/ Sodium Chloride (Phenergan Inj/ Nss 50ml) 50.5 ml @ 204 mls/hr Q6H PRN IV 10/21/16 05:15 11/20/16 05:14 Tramadol HCl (Ultram Tab) 25 mg Q6H PRN PO 10/21/16 05:15 11/20/16 05:14 Morphine Sulfate (MoRPHine SULFATE INJ) 4 mg Q3H PRN IV 10/21/16 05:15 11/04/16 05:14 Metoprolol Succinate (Toprol Xl Tab) 50 mg QAM PO 10/22/16 09:00 11/21/16 08:59 Aspirin (Ecotrin Tab) 325 mg HS PO 10/21/16 21:00 11/20/16 20:59 Atorvastatin Calcium (Lipitor Tab) 40 mg HS PO 10/21/16 21:00 11/20/16 20:59 Tamsulosin HCl (Flomax Cap) 0.4 mg HS PO 10/21/16 21:00 11/20/16 20:59
--- NOTE | 2016-10-21 18:47 | Progress Note ---
Progress Note Date of Service October 21, 2016. Progress Note Pt was seen and examined Sitting comfortable with no distress he said that he feels fine he denies any chest pain, palpitation and dizziness his last troponin in to 5 trop--.> 0.034-->2.72--->5.05 case discussed with Flakito Ernst that agreed to start on heparin drip for now. will continue monitor pt closely in tele.
[2016-10-21] MEDS: HEPARIN 25,000 UNIT/500ML D5W 500 ML IV PRN (19:58)
[2016-10-21] MEDS ORDERED: HEPARIN IV BOLUS 6,000 UNIT in SYRINGE 0 ML IV ONE (20:00)
[2016-10-21] MEDS: TAMSULOSIN HCL 0.4 MG CAP PO SCH (20:01)
[2016-10-21] MEDS: ASPIRIN 325 MG ECTAB PO SCH (20:01)
[2016-10-21] MEDS: ATORVASTATIN 40 MG TAB PO SCH (20:01)
[2016-10-21] MEDS: LISINOPRIL 40 MG TAB PO SCH (20:25)
[2016-10-22] VITALS (9 sets, daily range): BP systolic 106–147; BP diastolic 45–72; PULSE 47–77; TEMP 36.4–36.8; O2SAT 96–100
[2016-10-22] MEDS: NITROGLYCERIN 0.4 MG SL PER TAB CHARGE SL PRN ×3 (00:37→02:26)
[2016-10-22 02:46] LABS: BASO % 0.2 %; BASO ABS # 0.02 K/uL (0-0.2); COMPLETE YES; EOS % 0.2 %; HEMATOCRIT 36.1 % (42-52); IG% 0.2 %; LYMPH % 16.7 %; LYMPH ABS # 1.76 K/uL (1.2-3.4); MEAN CELL VOLUME 91.9 fL (80-100); MEAN CORPUSCULAR HEMOGLOBIN 30.5 pg (25-34); MEAN CORPUSCULAR HGB CONC 33.2 g/dl (32-36); MEAN PLATELET VOLUME 9.2 fL (7.4-10.4); MONO % 12.8 %; NEUT % 69.9 %; PLATELET COUNT 202 K/uL (130-400); RED BLOOD COUNT 3.93 M/uL (4.7-6.1); WHITE BLOOD COUNT 10.55 K/uL (4.8-10.8)
[2016-10-22 03:06] LABS: BUN/CREATININE RATIO 35.5 (10-20); CALCIUM 8.8 mg/dl (8.5-10.1); CREATININE 1.3 mg/dl (0.60-1.40); POTASSIUM 3.9 mmol/L (3.5-5.1)
[2016-10-22 03:14] LABS: PARTIAL THROMBOPLASTIN RATIO 4.6
[2016-10-22] MEDS: HEPARIN 25,000 UNIT/500ML D5W 500 ML IV PRN ×3 (04:22→15:10)
--- NOTE | 2016-10-22 06:43 | Clinical Documentation Query ---
CLINICAL DOCUMENTATION QUERY 86 year old male with hx of silent [place] who presents to the Emergency Room with complaints of left-sided chest pain, shortness of breath, Acute systolic CHF, and rising Troponin's In your clinical opinion is this patient being managed for: ( ) [place] ( ) Other explanation of clinical findings (Please Explain) ( ) Unable to determine (Please Define) ( ) Need to Discuss ( ) Not Agree The medical record reflects the following clinical findings, treatment, and risk factors. Clinical Indicators: Reduction in EF (20-25%), posterior and inferior wall akinesis, hypokinetic to akinetic septum, all remaining high hypokinetic. EKG showing inferior infarct. trop--.> 0.034-->2.72--->5.05. Acute systolic CHF Treatment: Heparin gtt, IV Lasix, ASA, Lisinopril, Toprol, SL Nitro Risk Factors: Age, hx of [place], Please clarify and document your clinical opinion in the progress notes and discharge summary. Terms such as "probable", "suspected", "likely", "questionable", "possible", or "still to be ruled out" are acceptable. IF IN AGREEMENT, YOU MUST DOCUMENT ABOVE DIAGNOSTIC STATEMENT IN DAILY PROGRESS NOTES AND DISCHARGE SUMMARY. This document is not part of the patient's record. Thank You, Aleks Marroquin, CLOVER [phone]
--- NOTE | 2016-10-22 06:45 | Clinical Documentation Query ---
CLINICAL DOCUMENTATION QUERY 86 year old male with hx of silent [place] who presents to the Emergency Room with complaints of left-sided chest pain, shortness of breath, Acute systolic CHF, and rising Troponin's In your clinical opinion is this patient being managed for: ( x ) [place] ( ) Other explanation of clinical findings (Please Explain) ( ) Unable to determine (Please Define) ( ) Need to Discuss ( ) Not Agree The medical record reflects the following clinical findings, treatment, and risk factors. Clinical Indicators: Reduction in EF (20-25%), posterior and inferior wall akinesis, hypokinetic to akinetic septum, all remaining high hypokinetic. EKG showing inferior infarct. Trop--.> 0.034-->2.72--->5.05. Acute systolic CHF. Treatment: Heparin gtt, IV Lasix, ASA, Lisinopril, Toprol, SL Nitro Risk Factors: Age, hx of [place], Please clarify and document your clinical opinion in the progress notes and discharge summary. Terms such as "probable", "suspected", "likely", "questionable", "possible", or "still to be ruled out" are acceptable. IF IN AGREEMENT, YOU MUST DOCUMENT ABOVE DIAGNOSTIC STATEMENT IN DAILY PROGRESS NOTES AND DISCHARGE SUMMARY. This document is not part of the patient's record. Thank You, Aleks Marroquin RN [phone]
--- NOTE | 2016-10-22 06:47 | Clinical Documentation Query ---
CLINICAL DOCUMENTATION QUERY 86 year old male with hx of silent [place] who presents to the Emergency Room with complaints of left-sided chest pain, shortness of breath, Acute systolic CHF, EKG changes, and rising Troponin's In your clinical opinion is this patient being managed for: (x ) [place] ( ) Other explanation of clinical findings (Please Explain) ( ) Unable to determine (Please Define) ( ) Need to Discuss ( ) Not Agree The medical record reflects the following clinical findings, treatment, and risk factors. Clinical Indicators: Reduction in EF (20-25%), posterior and inferior wall akinesis, hypokinetic to akinetic septum, all remaining high hypokinetic. EKG showing inferior infarct. trop--.> 0.034-->2.72--->5.05. Acute systolic CHF Treatment: Heparin gtt, IV Lasix, ASA, Lisinopril, Toprol, SL Nitro Risk Factors: Age, hx of [place], Please clarify and document your clinical opinion in the progress notes and discharge summary. Terms such as "probable", "suspected", "likely", "questionable", "possible", or "still to be ruled out" are acceptable. IF IN AGREEMENT, YOU MUST DOCUMENT ABOVE DIAGNOSTIC STATEMENT IN DAILY PROGRESS NOTES AND DISCHARGE SUMMARY. This document is not part of the patient's record. Thank You, Aleks Marroquin, CLOVER [phone]
[2016-10-22] MEDS: METOPROLOL SUCC 50MG EXT REL TAB PO SCH (07:53)
[2016-10-22] MEDS ORDERED: FUROSEMIDE INJ 40 MG in SYRINGE 0 ML IV SCH (09:00)
[2016-10-22 11:10] LABS: PARTIAL THROMBOPLASTIN RATIO 3.1
--- NOTE | 2016-10-22 11:50 | Cardiology Follow-Up ---
Subjective General Date of Service: October 22, 2016. Chief Complaint: CHF/NSTEMI Pt evaluation today including: conversation w/ patient, conversation w/ family , physical exam, chart review, lab review, review of studies, review of inpatient medication list History of Present Illness Patient feeling better this AM. SOB/orthopnea greatly improved. He noted back pain (below left scapula) last night when laying in bed, radiating to left side/ rib cage. symptoms improved upon repositioning and sitting up in bed. He denies recurrent chest pain. No SOB. No orthopnea. Edema improving. No palpitations, dizziness, syncope or near syncope. Allergies Coded Allergies: Niacin (Verified Allergy, Unknown, `, 07/14/11) Social History Smoking Status: Former Smoker Hx Tobacco Use In Past Year?: No Hx Alcohol Use - Type And Amou: No Hx Substance Use - Type And Am: No Review of Systems Respiratory: No cough, No dyspnea at rest, No hemoptysis, No shortness of breath, No sputum, No wheezing Cardiac: + edema, No PND, No chest pain, No orthopnea, No palpitations Physical Exam Vital Signs Last Vital Signs Documentation Date Time Temp Pulse Resp B/P Pulse Ox O2 Delivery O2 Flow Rate FiO2 10/22/16 10:58 36.5 54 18 106/45 96 Nasal Cannula 3.0 Physical Exam Constitutional: General Apperance: overweight Level of Distress: NAD Psychiatric: Mental Status: active & alert Orientation: to time, to place, to person Head: normocephalic Eyes: Pupils: PERRLA Neck: supple Lungs: Auscultation: no wheezing, no rales/crackles, deminished air movement Cardiovascular: Heart Auscultation: RRR, normal S1, normal S2, no murmurs Abdomen: Bowel Sounds: normal Inspection & Palpation: soft, non-distended Extremities: edema (trace pretibial edema. ) Assessment and Plan Assessment and Plan FINAL IMPRESSIONS: 1. Acute systolic HF exacerbation 2. NSTEMI 2. Likely ischemic cardiomyopathy with interval decline in LV function, EF currently 20-25%, last echo in 2011 was normal. 3. 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 Given he was asymptomatic and nuclear Lexiscan with old scar and no inducible ischemia, med management recommended at that time. 4. Hypertension 5. Former tobacco abuse. 5. Dyslipidemia. 6. Obesity. PLAN AND RECOMMENDATIONS: IV heparin iniciated yesterday when troponin increased to 5. Continue for 48 hours. Symptoms and volume status improved with IV diuretics Monitor I+O's. Atenolol discontinued in favor of evidence based beta becky, Toprol XL 50 mg daily. Continue lisinopril. Continue ASA and statin. Likely will need furosemide on discharge in place of HCTZ. Long discussion today with patient and son. Recommend proceeding with diagnostic cardiac catheterization given elevated cardiac enzymes and interval decline in LV function. Patient to contemplate proceeding vs medical management. All questions answered. Case discussed with Dr. Fraga. Will also discuss cardiac cath with patient/ son. Hold AM Furosemide. Repeat labs in AM. NPO after midnight if patient is agreeable to proceeding. Cardiology Attending Physician: Patient seen and examined at the bedside. Patient is feeling better today. No chest discomfort. FITZGERALD improved. IV heparin ordered last night due elevated troponin. PE: VSS. Gen: NAD, AAOx3. Heart: Reg, Normal S1S2. No murmur. Lungs: scant rales at right base. Ext: 1+ pretibial edema. A/P: Agree with above PA-C history, physical exam, assessment and plan. Risks, benefits, and alternatives to cardiac catheterization discussed at length with the patient and his son. Patient is unsure at this time. Lasix will be placed on hold. Repeat BMP in AM. Patient will inform me when he makes decision regarding catheterization. Ag Fraga DO, [facility] Laboratory Results Last 24 Hours Test 10/21/16 16:02 10/21/16 16:20 10/22/16 02:27 10/22/16 10:40 Creatine Kinase MB Ratio Creatine Kinase MB 20.0 ng/ml Troponin I 5.050 ng/ml White Blood Count 10.55 K/uL Red Blood Count 3.93 M/uL Hemoglobin 12.0 g/dL Hematocrit 36.1 % Mean Corpuscular Volume 91.9 fL Mean Corpuscular Hemoglobin 30.5 pg Mean Corpuscular Hemoglobin Concent 33.2 g/dl Platelet Count 202 K/uL Mean Platelet Volume 9.2 fL Neutrophils (%) (Auto) 69.9 % Lymphocytes (%) (Auto) 16.7 % Monocytes (%) (Auto) 12.8 % Eosinophils (%) (Auto) 0.2 % Basophils (%) (Auto) 0.2 % Neutrophils # (Auto) 7.38 K/uL Lymphocytes # (Auto) 1.76 K/uL Monocytes # (Auto) 1.35 K/uL Eosinophils # (Auto) 0.02 K/uL Basophils # (Auto) 0.02 K/uL RDW Standard Deviation 52.1 fL RDW Coefficient of Variation 15.5 % Immature Granulocyte % (Auto) 0.2 % Immature Granulocyte # (Auto) 0.02 K/uL Activated Partial Thromboplast Time 119.9 SECONDS 79.5 SECONDS Partial Thromboplastin Ratio 4.6 3.1 Sodium Level 143 mmol/L Potassium Level 3.9 mmol/L Chloride Level 102 mmol/L Carbon Dioxide Level 35 mmol/L Anion Gap 6.0 mmol/L Blood Urea Nitrogen 46 mg/dl Creatinine 1.30 mg/dl Est Creatinine Clear Calc Drug Dose 45.1 ml/min Estimated GFR () 57.7 Estimated GFR (Non- 49.8 BUN/Creatinine Ratio 35.5 Random Glucose 122 mg/dl Calcium Level 8.8 mg/dl
--- NOTE | 2016-10-22 16:51 | Progress Note ---
Medicine Progress Note Date & Time of Visit: October 22, 2016 at 16:39. Subjective Pt was seen and examined Sitting in chair with no distress Pt said that he feels fine complaint of left side back tenderness that seems to improve when he sits in the chair he denies any chest pain palpitation, dizziness and SOB Objective Last 8 Hrs Date Time Temp Pulse Resp B/P Pulse Ox O2 Delivery O2 Flow Rate FiO2 10/22/16 15:08 36.8 50 18 138/57 98 Nasal Cannula 3.0 10/22/16 12:00 Nasal Cannula 3.0 10/22/16 10:58 36.5 54 18 106/45 96 Nasal Cannula 3.0 Physical Exam: General- No acute distress Head- atraumatic Eyes- PERRL, EOMI ENT- oropharynx clear Neck- supple, no JVD Lungs- Poor air entry Heart- regular rhythm; no murmur Abdomen- normal bowel sounds, soft, nontender Extremities- +edema, no calf tenderness Neuro- alert, oriented x 3; PERRL, EOMI; no facial palsy Skin- warm & dry Laboratory Results: Last 24 Hours Test 10/22/16 02:27 10/22/16 10:40 White Blood Count 10.55 K/uL Red Blood Count 3.93 M/uL Hemoglobin 12.0 g/dL Hematocrit 36.1 % Mean Corpuscular Volume 91.9 fL Mean Corpuscular Hemoglobin 30.5 pg Mean Corpuscular Hemoglobin Concent 33.2 g/dl Platelet Count 202 K/uL Mean Platelet Volume 9.2 fL Neutrophils (%) (Auto) 69.9 % Lymphocytes (%) (Auto) 16.7 % Monocytes (%) (Auto) 12.8 % Eosinophils (%) (Auto) 0.2 % Basophils (%) (Auto) 0.2 % Neutrophils # (Auto) 7.38 K/uL Lymphocytes # (Auto) 1.76 K/uL Monocytes # (Auto) 1.35 K/uL Eosinophils # (Auto) 0.02 K/uL Basophils # (Auto) 0.02 K/uL RDW Standard Deviation 52.1 fL RDW Coefficient of Variation 15.5 % Immature Granulocyte % (Auto) 0.2 % Immature Granulocyte # (Auto) 0.02 K/uL Activated Partial Thromboplast Time 119.9 SECONDS 79.5 SECONDS Partial Thromboplastin Ratio 4.6 3.1 Sodium Level 143 mmol/L Potassium Level 3.9 mmol/L Chloride Level 102 mmol/L Carbon Dioxide Level 35 mmol/L Anion Gap 6.0 mmol/L Blood Urea Nitrogen 46 mg/dl Creatinine 1.30 mg/dl Est Creatinine Clear Calc Drug Dose 45.1 ml/min Estimated GFR () 57.7 Estimated GFR (Non- 49.8 BUN/Creatinine Ratio 35.5 Random Glucose 122 mg/dl Calcium Level 8.8 mg/dl Assessment & Plan ACUTE HYPOXIC RESPIRATORY FAILURE 2nd TO ACUTE SYSTOLIC HF EXACERBATION cxr showed showed mild pulmonary edema, trace bilateral pleural effusions, and cardiomegaly. 2D ECHO showed: * Left ventricular systolic function is severely reduced. * Ejection Fraction = 20-25%. * There is posterior wall akinesis. * There is inferior wall akinesis. * The septum is severely hypokinertic to akinetic. * The remaining wall segments are hypokinetic. * There is moderate mitral regurgitation. Received 80 mg Lasix IV. Received IV lasix 40mg today Will hold am dose of lasix since pt plan to go for cardiac cath in am Monitor I/O Atenolol changed to metoprolol by cardio clinically improved significantly Cardiology on board NSTEMI ELEVATED TROPONIN Troponin increased to 5 yesterday denies any chest pain IV heparin started yesterday Continue statin, aspirin and beta becky Case discussed with Cardiology team Planing for cardiac cath in am will make NPO after midnight HTN BP stable continue monitor BP CAROTID STENOSIS stable ABNORMAL UA Asymptomatic, afebrile, no leukocytosis urine culture + pin-point growth DVT Px IV heparin CODE STATUS FULL CODE Consultants: Cardio Current Inpatient Medications: Current Inpatient Medications Medications (Trade) Dose Ordered Sig/Kael Route Start Time Stop Time Status Last Admin Dose Admin Ipratropium [place] (Atrovent 0.02% 0.5MG/2.5ML Neb) 0.5 mg Q4H PRN INH 10/21/16 04:15 11/20/16 04:14 Levalbuterol (Xopenex 1.25MG/ 0.5ML Neb) 1.25 mg Q4H PRN INH 10/21/16 04:15 11/20/16 04:14 Acetaminophen (Tylenol Tab) 650 mg Q4H PRN PO 10/21/16 05:15 11/20/16 05:14 10/22/16 00:59 650 MG Nitroglycerin (Nitrostat Tab) 0.4 mg UD PRN SL 10/21/16 05:15 11/20/16 05:14 10/22/16 02:26 0.4 MG Lisinopril 40 mg 40 mg HS PO 10/21/16 21:00 11/20/16 20:59 10/21/16 20:25 40 MG Promethazine HCl/ Sodium Chloride (Phenergan Inj/ Nss 50ml) 50.5 ml @ 204 mls/hr Q6H PRN IV 10/21/16 05:15 11/20/16 05:14 Tramadol HCl (Ultram Tab) 25 mg Q6H PRN PO 10/21/16 05:15 11/20/16 05:14 Morphine Sulfate (MoRPHine SULFATE INJ) 4 mg Q3H PRN IV 10/21/16 05:15 11/04/16 05:14 10/22/16 02:44 4 MG Metoprolol Succinate (Toprol Xl Tab) 50 mg QAM PO 10/22/16 09:00 11/21/16 08:59 10/22/16 07:53 50 MG Aspirin (Ecotrin Tab) 325 mg HS PO 10/21/16 21:00 11/20/16 20:59 10/21/16 20:01 325 MG Atorvastatin Calcium (Lipitor Tab) 40 mg HS PO 10/21/16 21:00 11/20/16 20:59 10/21/16 20:01 40 MG Tamsulosin HCl 0.4 mg 0.4 mg HS PO 10/21/16 21:00 11/20/16 20:59 10/21/16 20:01 0.4 MG Heparin Sodium/ Dextrose (Heparin 25,000 Unit/500ml D5W) 500 ml @ 20 mls/hr Q24H PRN IV 10/21/16 20:00 11/20/16 19:59 10/22/16 15:10 20 MLS/HR
[2016-10-22 18:06] LABS: PARTIAL THROMBOPLASTIN RATIO 2.4
[2016-10-22] MEDS: TAMSULOSIN HCL 0.4 MG CAP PO SCH (20:34)
[2016-10-22] MEDS: ASPIRIN 325 MG ECTAB PO SCH (20:34)
[2016-10-22] MEDS: ATORVASTATIN 40 MG TAB PO SCH (20:34)
[2016-10-22] MEDS: LISINOPRIL 40 MG TAB PO SCH (20:35)
[2016-10-23] VITALS (13 sets, daily range): BP systolic 101–165; BP diastolic 54–73; PULSE 51–81; TEMP 36.4–36.7; O2SAT 87–99
[2016-10-23 07:58] LABS: HEMATOCRIT 37.2 % (42-52); MEAN CELL VOLUME 92.8 fL (80-100); MEAN CORPUSCULAR HEMOGLOBIN 30.2 pg (25-34); MEAN CORPUSCULAR HGB CONC 32.5 g/dl (32-36); MEAN PLATELET VOLUME 9.5 fL (7.4-10.4); PLATELET COUNT 191 K/uL (130-400); RED BLOOD COUNT 4.01 M/uL (4.7-6.1); WHITE BLOOD COUNT 8.09 K/uL (4.8-10.8)
[2016-10-23 08:15] LABS: PARTIAL THROMBOPLASTIN RATIO 2.2
[2016-10-23 08:28] LABS: BUN/CREATININE RATIO 39.8 (10-20); CREATININE 1.2 mg/dl (0.60-1.40); POTASSIUM 4.1 mmol/L (3.5-5.1)
[2016-10-23 08:32] LABS: CALCIUM 8.8 mg/dl (8.5-10.1)
[2016-10-23] MEDS: METOPROLOL SUCC 50MG EXT REL TAB PO SCH (09:00)
[2016-10-23] MEDS ORDERED: METOPROLOL SUCC 25MG EXT REL TAB PO ONE (10:14)
--- NOTE | 2016-10-23 12:34 | Cardiology Follow-Up ---
Subjective General Date of Service: October 23, 2016. Chief Complaint: CHF/NSTEMI Pt evaluation today including: conversation w/ patient, physical exam, chart review, lab review, review of studies, review of inpatient medication list History of Present Illness The patient is a 86 year old male seen in follow up. No CP. FITZGERALD improved. AM lasix held in anticipation of cardiac catheterization. +LE edema. Intermittent sinus bradycardia and ventricular bigeminy on monitor. Patient offers no complaints. Allergies Coded Allergies: Niacin (Verified Allergy, Unknown, `, 07/14/11) Social History Smoking Status: Former Smoker Hx Tobacco Use In Past Year?: No Hx Alcohol Use - Type And Amou: No Hx Substance Use - Type And Am: No Review of Systems Respiratory: + dyspnea on exertion, No cough, No dyspnea at rest, No hemoptysis , No shortness of breath, No sputum, No wheezing Cardiac: + edema, No PND, No chest pain, No claudication, No orthopnea, No palpitations Physical Exam Vital Signs Last Vital Signs Documentation Date Time Temp Pulse Resp B/P Pulse Ox O2 Delivery O2 Flow Rate FiO2 10/23/16 11:36 36.6 51 18 127/62 99 Nasal Cannula 3.0 Physical Exam Constitutional: General Apperance: overweight Level of Distress: NAD Psychiatric: Mental Status: active & alert Orientation: to time, to place, to person Head: normocephalic Eyes: Pupils: PERRLA Neck: supple Lungs: Auscultation: no wheezing, no rales/crackles, deminished air movement Cardiovascular: Heart Auscultation: RRR, normal S1, normal S2, no murmurs, bradycardia Peripheral Pulses: Radial Pulse: normal on the right (Ulnar pulse not palpable with abnormal modesto and Barboe test) Femoral Pulse: normal on the left, normal on the right Abdomen: Bowel Sounds: normal Inspection & Palpation: soft, non-distended Extremities: no cyanosis, no clubbing, no ulcers, edema (trace pretibial edema. ) Neurologic: Gait & Station: pertinent finding (No focal motor deficit) Cranial Nerves: grossly intact Assessment and Plan Assessment and Plan FINAL IMPRESSIONS: 1. NSTEMI 2. Acute systolic HF exacerbation - improving with IV diuresis. 3. Ischemic cardiomyopathy with interval decline in LV function, EF currently 20 -25%, last echo in 2011 was normal. 4. History of silent inferior ID, 2007 with no prior cardiac catheterization. 5. Hypertension - controlled 6. Former tobacco abuse. 7. Dyslipidemia. 8. Obesity. PLAN AND RECOMMENDATIONS: Hold IV heparin. Reduce toprol to 25mg daily. Hold lasix today. Continue other medications as previously ordered. Risks, benefits, and alternatives to cardiac catheterization discussed Patient agreeable. Ag Fraga DO, [facility] Laboratory Results Last 24 Hours Test 10/22/16 17:40 10/23/16 07:17 Activated Partial Thromboplast Time 63.0 SECONDS 58.3 SECONDS Partial Thromboplastin Ratio 2.4 2.2 White Blood Count 8.09 K/uL Red Blood Count 4.01 M/uL Hemoglobin 12.1 g/dL Hematocrit 37.2 % Mean Corpuscular Volume 92.8 fL Mean Corpuscular Hemoglobin 30.2 pg Mean Corpuscular Hemoglobin Concent 32.5 g/dl RDW Standard Deviation 52.8 fL RDW Coefficient of Variation 15.6 % Platelet Count 191 K/uL Mean Platelet Volume 9.5 fL Sodium Level 143 mmol/L Potassium Level 4.1 mmol/L Chloride Level 101 mmol/L Carbon Dioxide Level 35 mmol/L Anion Gap 7.0 mmol/L Blood Urea Nitrogen 48 mg/dl Creatinine 1.20 mg/dl Est Creatinine Clear Calc Drug Dose 48.6 ml/min Estimated GFR () 63.5 Estimated GFR (Non- 54.8 BUN/Creatinine Ratio 39.8 Random Glucose 99 mg/dl Calcium Level 8.8 mg/dl
[2016-10-23] MEDS ORDERED: FENTANYL CITRATE INJ 50 MCG/1 ML 2 ML VIAL ONE (14:14)
[2016-10-23] MEDS ORDERED: MIDAZOLAM HCL 1 MG/ML 2ML VIAL ONE (14:14)
[2016-10-23] MEDS ORDERED: HEPARIN SOD (PORCINE) 1000 UNIT/ML 10 ML VIAL ONE (15:23)
[2016-10-23] MEDS ORDERED: NITROGLYCERIN/D5W 100MCG/ML 20ML SYR ONE (15:23)
[2016-10-23] MEDS ORDERED: NiCARDipine HCL INJ 2.5 MG/ML 10 ML AMP ONE (15:23)
--- NOTE | 2016-10-23 15:25 | Procedure Note ---
Pre-Mod Sedation Assessment General Date of Moderate Sedation: October 23, 2016. Vital Signs: Vital Signs Past 12 Hours Date Time Temp Pulse Resp B/P Pulse Ox O2 Delivery O2 Flow Rate FiO2 10/23/16 13:32 36.7 78 18 126/54 97 Nasal Cannula 3.0 10/23/16 12:00 Nasal Cannula 3.0 10/23/16 11:36 36.6 51 18 127/62 99 Nasal Cannula 3.0 10/23/16 08:00 Nasal Cannula 3.0 10/23/16 07:27 36.4 62 19 135/57 98 Nasal Cannula 2.0 10/23/16 04:11 36.4 66 18 130/71 97 Nasal Cannula 10/23/16 04:00 Nasal Cannula 3.0 Review Cardiovascular: regular rate, rhythm, no edema Abdomen: normal bowel sounds, non tender, soft Lungs: chest non-tender, lungs clear Pre-Sedation Airway Assessment Oral Cavity: Dentures Smoking Status: Former Smoker Mallampati Classification: Class III ASA Classification: Class IV Procedure Planning Contraindications-for Mod Sed: None Yes Notes The planned sedation has been discussed with the patient and consent obtained. I have identified the patient, determined the appropriateness of sedation and have assessed the patient immediately prior to the procedure. All medicine(s) and interventions are by my order.
--- NOTE | 2016-10-23 15:54 | Cardiac Catheterization ---
Procedure Note Procedure Date October 23, 2016. Pre-Procedure Diagnosis Non STEMI, CHF, Cardiomyopathy AUC Score 9 Post-Procedure Diagnosis Severe CAD Procedure(s) Performed Coronary Angiography, Left Heart Cath, Aortography (50% ostial right iliac), Femoral Artery Angiography Hospice Care Consultant Dr. Fraga Claims Adjuster(s) Dilcia Taveras RN - sedation nurse Estimated Blood Loss 5cc Medication(s) Versed, Lidocaine 1% Summary of Findings CIGAR ROLLER RCA. 90% mid LAD 90% prox Lcx. Calcified. Hemodynamics Rest Ao: 144/40/78 Final Ao: 164/54/92 LV: 165/13/19 Recommendations PCI without planned CABG Specimens None Radiation Exposure (mGy) 1233 Contrast (mls) 70 Procedural Complication(s) None Disposition Patient remainen in seed analysis laboratory assistant for IVUS ACC Data Cardiac Status Clinical evaluation leading to the procedure CAD Presntation: Non STEMI Anginal Classification: CCS IV Heart Failure: NYHA Class: CCS IV Cardiogenic Shock w/in 24Hrs: No Cardiac Arrest w/in 24Hrs: No Stress studies past 6 months: No Coronary Anatomy Dominant: Right Left Main (% Stenosis): Ostial (40% taper) LAD (% Stenosis): Proximal (Severe area of calcification with 30% stenosis, associated 50% stenosis of septal transformer assembler), Mid (90%, moderately calcified), Distal (10%) D1 (% Stenosis): Ostial (small vessel, 60% ostial), Proximal (10%), Mid (10%), Distal (10%) Circumflex (% Stenosis): Proximal (80% calcified), Distal (50%) OM1 (% Stenosis): Ostial (10%), Proximal (10%), Mid (10%), Distal (10%) RCA (% Stenosis): Proximal (100%), Mid (fills via left to right collaterals. ) Ramus (% Stenosis): Ostial (not well visualized), Mid (10%), Distal (10%), Proximal (not well visualized, at least moderate obstructive disease) Diagnostic Status: Urgent Closure Device Percutaneous Entry Location: Femoral Intraprocedure Events Significant Dissection: No Perforation: No
[2016-10-23] MEDS ORDERED: SODIUM CHLORIDE 0.9% 1000ML 250 ML IV PRN (16:04)
[2016-10-23] MEDS ORDERED: ONDANSETRON INJ 2 MG/ML 2 ML VIAL IV PRN (16:15)
[2016-10-23] MEDS ORDERED: ACETAMINOPHEN 325 MG TAB PO PRN (16:15)
[2016-10-23] MEDS ORDERED: ATROPINE SULFATE 0.1 MG/ML 5ML SYR IV PRN (16:15)
--- NOTE | 2016-10-23 18:18 | Progress Note ---
Medicine Progress Note Date & Time of Visit: October 23, 2016 at 18:11. Subjective Pt was seen and examined Lying in bed with no distress He is going for Cardiac cath denies any chest pain, palpitation, dizziness and SOB Objective Last 8 Hrs Date Time Temp Pulse Resp B/P Pulse Ox O2 Delivery O2 Flow Rate FiO2 10/23/16 17:42 72 20 142/66 93 Nasal Cannula 4.0 10/23/16 17:12 71 20 149/63 99 Nasal Cannula 4.0 10/23/16 17:00 67 18 149/65 98 Nasal Cannula 4.0 10/23/16 16:45 80 20 145/70 87 Nasal Cannula 3.0 10/23/16 16:26 36.6 81 20 165/70 91 Nasal Cannula 3.0 10/23/16 16:26 Nasal Cannula 3.0 10/23/16 16:05 65 16 130/68 93 Room Air 10/23/16 15:50 65 16 126/60 93 Room Air 10/23/16 13:32 36.7 78 18 126/54 97 Nasal Cannula 3.0 10/23/16 12:00 Nasal Cannula 3.0 10/23/16 11:36 36.6 51 18 127/62 99 Nasal Cannula 3.0 Physical Exam: General- No acute distress Head- atraumatic Eyes- PERRL, EOMI ENT- oropharynx clear Neck- supple, no JVD Lungs- Poor air entry Heart- regular rhythm; no murmur Abdomen- normal bowel sounds, soft, nontender Extremities- +edema, no calf tenderness Neuro- alert, oriented x 3; PERRL, EOMI; no facial palsy Skin- warm & dry Laboratory Results: Last 24 Hours Test 10/23/16 07:17 10/23/16 15:19 10/23/16 15:52 White Blood Count 8.09 K/uL Red Blood Count 4.01 M/uL Hemoglobin 12.1 g/dL Hematocrit 37.2 % Mean Corpuscular Volume 92.8 fL Mean Corpuscular Hemoglobin 30.2 pg Mean Corpuscular Hemoglobin Concent 32.5 g/dl RDW Standard Deviation 52.8 fL RDW Coefficient of Variation 15.6 % Platelet Count 191 K/uL Mean Platelet Volume 9.5 fL Activated Partial Thromboplast Time 58.3 SECONDS Partial Thromboplastin Ratio 2.2 Sodium Level 143 mmol/L Potassium Level 4.1 mmol/L Chloride Level 101 mmol/L Carbon Dioxide Level 35 mmol/L Anion Gap 7.0 mmol/L Blood Urea Nitrogen 48 mg/dl Creatinine 1.20 mg/dl Est Creatinine Clear Calc Drug Dose 48.6 ml/min Estimated GFR () 63.5 Estimated GFR (Non- 54.8 BUN/Creatinine Ratio 39.8 Random Glucose 99 mg/dl Calcium Level 8.8 mg/dl Kaolin Activated Coagulation Time 126 SECONDS 199 SECONDS Assessment & Plan ACUTE HYPOXIC RESPIRATORY FAILURE 2nd TO ACUTE SYSTOLIC HF EXACERBATION cxr showed showed mild pulmonary edema, trace bilateral pleural effusions, and cardiomegaly. 2D ECHO showed: * Left ventricular systolic function is severely reduced. * Ejection Fraction = 20-25%. * There is posterior wall akinesis. * There is inferior wall akinesis. * The septum is severely hypokinertic to akinetic. * The remaining wall segments are hypokinetic. * There is moderate mitral regurgitation. Lasix was held today for cardiac cath Monitor I/O Atenolol changed to metoprolol by cardio clinically improved significantly Cardiology on board NSTEMI ELEVATED TROPONIN Troponin increased to 5 yesterday denies any chest pain IV heparin D/C Continue statin, aspirin and beta becky Cardiac cath done today by Dr. Fraga Case discussed with Cardiology that considers to transfer him to [place] for the calcified vessel finding on Cardiac cath Will transfer to [facility] for Rotablation Coronary Anatomy Dominant: Right Left Main (% Stenosis): Ostial (40% taper) LAD (% Stenosis): Proximal (Severe area of calcification with 30% stenosis, associated 50% stenosis of septal public welfare director), Mid (90%, moderately calcified), Distal (10%) D1 (% Stenosis): Ostial (small vessel, 60% ostial), Proximal (10%), Mid (10%), Distal (10%) Circumflex (% Stenosis): Proximal (80% calcified), Distal (50%) OM1 (% Stenosis): Ostial (10%), Proximal (10%), Mid (10%), Distal (10%) RCA (% Stenosis): Proximal (100%), Mid (fills via left to right collaterals. ) Ramus (% Stenosis): Ostial (not well visualized), Mid (10%), Distal (10%), Proximal (not well visualized, at least moderate obstructive disease) HTN BP stable continue monitor BP CAROTID STENOSIS stable ABNORMAL UA Asymptomatic, afebrile, no leukocytosis urine culture growth more than 3 organisms Mostly contamination DVT Px IV heparin CODE STATUS FULL CODE DISPOSITION Dr. Barnes is the accepting physician Keep NPO after midnight for possible rotablation procedure in am Consultants: Cardio Procedures: Coronary Angiography, Left Heart Cath, Aortography (50% ostial right iliac), Femoral Artery Angiography Current Inpatient Medications: Current Inpatient Medications Medications (Trade) Dose Ordered Sig/Kael Route Start Time Stop Time Status Last Admin Dose Admin Ipratropium [place] (Atrovent 0.02% 0.5MG/2.5ML Neb) 0.5 mg Q4H PRN INH 10/21/16 04:15 11/20/16 04:14 Levalbuterol (Xopenex 1.25MG/ 0.5ML Neb) 1.25 mg Q4H PRN INH 10/21/16 04:15 11/20/16 04:14 Acetaminophen (Tylenol Tab) 650 mg Q4H PRN PO 10/21/16 05:15 11/20/16 05:14 10/22/16 00:59 650 MG Nitroglycerin (Nitrostat Tab) 0.4 mg UD PRN SL 10/21/16 05:15 11/20/16 05:14 10/22/16 02:26 0.4 MG Lisinopril 40 mg 40 mg HS PO 10/21/16 21:00 11/20/16 20:59 10/22/16 20:35 40 MG Promethazine HCl/ Sodium Chloride (Phenergan Inj/ Nss 50ml) 50.5 ml @ 204 mls/hr Q6H PRN IV 10/21/16 05:15 11/20/16 05:14 Tramadol HCl (Ultram Tab) 25 mg Q6H PRN PO 10/21/16 05:15 11/20/16 05:14 Morphine Sulfate (MoRPHine SULFATE INJ) 4 mg Q3H PRN IV 10/21/16 05:15 11/04/16 05:14 10/22/16 02:44 4 MG Aspirin (Ecotrin Tab) 325 mg HS PO 10/21/16 21:00 11/20/16 20:59 10/22/16 20:34 325 MG Atorvastatin Calcium (Lipitor Tab) 40 mg HS PO 10/21/16 21:00 11/20/16 20:59 10/22/16 20:34 40 MG Tamsulosin HCl (Flomax Cap) 0.4 mg HS PO 10/21/16 21:00 11/20/16 20:59 10/22/16 20:34 0.4 MG Metoprolol Succinate 25 mg 25 mg QAM PO 10/24/16 09:00 11/23/16 08:59 Sodium Chloride (Nss 1000ml) 250 ml @ 999 mls/hr Q16M PRN IV 10/23/16 16:04 11/22/16 16:03 Atropine Sulfate (Atropine Sulfate 0.1MG/Ml Inj) 0.6 mg PRN PRN IV 10/23/16 16:15 11/22/16 16:14 Ondansetron HCl (Zofran Inj) 4 mg Q6H PRN IV 10/23/16 16:15 11/22/16 16:14
--- NOTE | 2016-10-23 19:52 | Discharge Instructions ---
Discharge Instructions Date of Service October 23, 2016. Admission Reason for Admission: Respiratory Failure, Acute Discharge Discharge Diagnosis / Problem: NSTEMI, ACUTE HYPOXIC RESPIRATORY FAILURE, HTN Discharge Goals Goal(s): Decrease discomfort, Improve function, Improve disease control Activity Recommendations Activity Limitations: resume your previous activity . Instructions / Follow-Up Instructions / Follow-Up Transfer to [facility] Dr. Barnes is the accepting physician Keep NPO after midnight for possible rotablation procedure in am Current Hospital Diet Patient's current hospital diet: AHA Diet (Heart Healthy) Discharge Diet Recommended Diet: AHA Diet (Heart Healthy) Procedures Procedures Performed: cardiac cath Pending Studies Studies pending at discharge: no Medical Emergencies . Who to Call and When: Medical Emergencies: If at any time you feel your situation is an emergency, please call 911 immediately. . Non-Emergent Contact Non-Emergency issues call your: Primary Care Provider, Charge Out Clerk Call Non-Emergent contact if: you have any medication questions . . "Provider Documentation" section prepared by Dwight Avila. . VTE Core Measure Inpt VTE Proph given/why not?: Other Anticoagulation (heparin drip)
--- NOTE | 2016-10-23 20:08 | Discharge Summary ---
Discharge Summary Date of Service October 23, 2016. Discharge Summary Admission Date: October 21, 2016 at 04:50 Discharge Date: October 23, 2016 Discharge Disposition: Acute care facility ([facility]) Principal Diagnosis: NSTEMI Secondary Diagnoses/Problems: ACUTE HYPOXIC RESPIRATORY FAILURE 2nd TO ACUTE SYSTOLIC HF EXACERBATION ELEVATED TROPONIN HTN ABNORMAL UA CAROTID STENOSIS Procedures: Coronary Angiography, Left Heart Cath, Aortography (50% ostial right iliac), Femoral Artery Angiography Consultations: Cardio Medication Reconciliation Continued Medications: Aspirin (Aspirin) 325 Mg Tab 325 MG PO DAILY Atenolol (Tenormin) 50 Mg Tab 50 MG PO DAILY, 0 Refills Atorvastatin (Lipitor) 40 Mg Tab 40 MG PO DAILY, TAB Lisinopril (Zestril) 40 Mg Tab 40 MG PO HS, 0 Refills Tamsulosin Hcl (Flomax) 0.4 Mg Cap 0.4 MG PO DAILY, CAP Discontinued Medications: Hydrochlorothiazide (Hydrochlorothiazide) 12.5 Mg Tab 1 TAB PO DAILY for 90 Days, #90 TAB 3 Refills Admission Information HPI (per Admitting provider): PRIMARY CARE DOCTOR: Dr. Torres History was obtained from the patient and records. CHIEF COMPLAINT: Shortness of breath. HISTORY OF PRESENT ILLNESS: Medical history is significant for silent heart attack as per patient, hypertension, past tobacco abuse, urolithiasis and PVD status post surgery. Recent confinement was under Vascular Surgery service last July 2011 for L carotid stenosis sp CEA. 2D echo at that time showed an EF of 55-60%, LVH. Akinetic inferior wall consistent with prior infarct. In the few weeks, patient noted intermittent ni ankle swelling, some abdominal distention, transient shortness of breath especially on exertion and orthopnea. Px mentioned the intermittent ankle swelling to the PCP on last visit last month. Last night, the patient woke up from sleep with central chest tightness, non- radiating, shortness of breath and usual cough symptoms productive of white sputum. At the Emergency Room, the patient received Lasix and nitropaste for CHF. Physical Exam (per Admitting): PHYSICAL EXAMINATION: VITAL SIGNS: Blood pressure was noted to be 158/85, pulse rate 106, RR 28, temperature 36.9 and sats 86 on room air, later 97 on four liters. GENERAL: Noted to be obese, min respiratory distress. SKIN: Pallor. HEENT: Alopecia. Pale palpebral conjunctivae. Dry mucosa. Nasal cannula is in place. NECK: Short neck. LUNGS: Decreased breath sounds. HEART: Tachycardic. ABDOMEN: Some distension. NT EXTREMITIES: Bilateral lower extremity edema. no tenderness NEUROLOGIC: No gross focality except for some L facial asymmetry (? duration). Hospital Course ACUTE HYPOXIC RESPIRATORY FAILURE 2nd TO ACUTE SYSTOLIC HF EXACERBATION cxr showed showed mild pulmonary edema, trace bilateral pleural effusions, and cardiomegaly. 2D ECHO showed: * Left ventricular systolic function is severely reduced. * Ejection Fraction = 20-25%. * There is posterior wall akinesis. * There is inferior wall akinesis. * The septum is severely hypokinertic to akinetic. * The remaining wall segments are hypokinetic. * There is moderate mitral regurgitation. Lasix was held today for cardiac cath Monitor I/O Atenolol changed to metoprolol by cardio clinically improved significantly Cardiology on board NSTEMI ELEVATED TROPONIN Troponin increased to 5 yesterday denies any chest pain IV heparin D/C Continue statin, aspirin and beta becky Cardiac cath done today by Dr. Fraga Case discussed with Cardiology that considers to transfer him to [place] for the calcified vessel finding on Cardiac cath Will transfer to [facility] for Rotablation Coronary Anatomy Dominant: Right Left Main (% Stenosis): Ostial (40% taper) LAD (% Stenosis): Proximal (Severe area of calcification with 30% stenosis, associated 50% stenosis of septal construction technology instructor), Mid (90%, moderately calcified), Distal (10%) D1 (% Stenosis): Ostial (small vessel, 60% ostial), Proximal (10%), Mid (10%), Distal (10%) Circumflex (% Stenosis): Proximal (80% calcified), Distal (50%) OM1 (% Stenosis): Ostial (10%), Proximal (10%), Mid (10%), Distal (10%) RCA (% Stenosis): Proximal (100%), Mid (fills via left to right collaterals. ) Ramus (% Stenosis): Ostial (not well visualized), Mid (10%), Distal (10%), Proximal (not well visualized, at least moderate obstructive disease) HTN BP stable continue monitor BP CAROTID STENOSIS stable ABNORMAL UA Asymptomatic, afebrile, no leukocytosis urine culture growth more than 3 organisms Mostly contamination DVT Px IV heparin CODE STATUS FULL CODE DISPOSITION Dr. Barnes is the accepting physician Keep NPO after midnight for possible rotablation procedure in am Total time spent on discharge = 45 MINUTES This includes examination of the patient, discharge planning, medication reconciliation, and communication with other providers. Discharge Instructions Discharge Instructions Date of Service October 23, 2016. Admission Reason for Admission: Respiratory Failure, Acute Discharge Discharge Diagnosis / Problem: NSTEMI Discharge Goals Goal(s): Decrease discomfort, Improve function, Improve disease control Activity Recommendations Activity Limitations: resume your previous activity . Instructions / Follow-Up Instructions / Follow-Up Transfer to [facility] Dr. Barnes is the accepting physician Keep NPO after midnight for possible rotablation procedure in am Current Hospital Diet Patient's current hospital diet: AHA Diet (Heart Healthy) Discharge Diet Recommended Diet: AHA Diet (Heart Healthy) Procedures Procedures Performed: cardiac cath Pending Studies Studies pending at discharge: no Medical Emergencies . Who to Call and When: Medical Emergencies: If at any time you feel your situation is an emergency, please call 911 immediately. . Non-Emergent Contact Non-Emergency issues call your: Primary Care Provider, Chain Hoist Operator Call Non-Emergent contact if: you have any medication questions . . "Provider Documentation" section prepared by Dwight Avlia. . VTE Core Measure Inpt VTE Proph given/why not?: Other Anticoagulation (heparin drip) Additional Copies To Elton Torres III, M.D.
[2016-10-23] MEDS: TAMSULOSIN HCL 0.4 MG CAP PO SCH (20:36)
[2016-10-23] MEDS: ASPIRIN 325 MG ECTAB PO SCH (20:36)
[2016-10-23] MEDS: ATORVASTATIN 40 MG TAB PO SCH (20:36)
[2016-10-23] MEDS: LISINOPRIL 40 MG TAB PO SCH (20:36)
[2016-10-24] MEDS ORDERED: METOPROLOL SUCC 25MG EXT REL TAB PO SCH (09:00)
--- NOTE | 2016-10-27 18:31 | [facility] Post Operative Brief Note ---
Preliminary Procedure Note Procedure Date October 27, 2016. Pre-Procedure Diagnosis Non STEMI, CHF, Cardiomyopathy AUC Score 9 Post-Procedure Diagnosis Severe CAD Procedure(s) Performed IVUS, Aortography Flight Data Technician Dr. Duffy Customs Entry Writer(s) Dilcia Taveras RN - sedation nurse Estimated Blood Loss 10 Medication(s) Versed, Lidocaine 1% Preliminary Findings Access: Right Femoral Artery Catheters: EBU 3.5 guide Findings: For full details of patients coronary anatomy please see cath report dictated by Dr. Fraga from 10/23/2016. Briefly, patient noted to have diffusely calcified aorta, iliac and coronary arteries. Angiography noted to have a mid RCA PUTTY GLAZER with left to right collaterals, severely calcified LAD with 90% focal mid stenosis and hazy 90% proximal circumflex lesion. Decision made to further evaluate proximal circumflex lesion with IVUS in setting of NSTEMI and possible acute plaque rupture. -- LM cannulated with EBU 3.5 guide -- BMW wire placed into distal circumflex -- IVUS catheter able to be advanced to just distal to proximal stenosis -- IVUS revealed severely calcified, eccentric plaque in the proximal circumflex segment (minimal CSA 2.0 cm2). No significant ostial circumflex disease. Left main with severe diffuse calcium but only mild stenosis, <40% with minimal CSA 10.5 cm2. -- Wire/IVUS catheter removed and no post procedure apparent complications -- DSA of abdominal aorta/iliacs revealed approximately 70% ostial stenosis of right RYLEE. 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 Arterial Closure: Mynx Summary: 1. Severely calcified 3 vessel coronary artery disease - RCA PUTTY GLAZER - 90% mid LAD - 90% eccentric calcified proximal circumflex stenosis (confirmed on IVUS) Recommendations: Refer to [facility] for high risk PCI versus bypass Recommendations PCI without planned CABG Specimens None Procedural Complication(s) None Disposition PCU
== END 2016-10-23 21:30 | disposition short-term general hospital (02) | DRG 280 ==
LOC: ENRESERVDT → ENRESERVTM → EDBD 02:33 → C.EDB 02:34 → C.2T 04:50
PROVIDERS: ADMIT Internal Medicine; ATTEND Internal Medicine
PROC: B2111ZZ Fluoroscopy of Multiple Coronary Arteries using Low Osmolar Contrast (ICD-10-PCS; principal; 2016-10-23 11:00)
PROC: B3101ZZ Fluoroscopy of Thoracic Aorta using Low Osmolar Contrast (ICD-10-PCS; principal; 2016-10-23 11:00)
PROC: 4A023N7 Measurement of Cardiac Sampling and Pressure, Left Heart, Percutaneous Approach (ICD-10-PCS; principal; 2016-10-23 11:00)
DX: I21.4 Non-ST elevation (NSTEMI) myocardial infarction (principal); J96.01 Acute respiratory failure with hypoxia; I50.23 Acute on chronic systolic (congestive) heart failure; I25.10 Atherosclerotic heart disease of native coronary artery without angina pectoris; Z87.891 Personal history of nicotine dependence; Z79.82 Long term (current) use of aspirin; I10 Essential (primary) hypertension; I73.9 Peripheral vascular disease, unspecified; I25.2 Old myocardial infarction; D64.9 Anemia, unspecified; I65.29 Occlusion and stenosis of unspecified carotid artery; E66.9 Obesity, unspecified; I25.5 Ischemic cardiomyopathy; Z68.29 Body mass index [BMI] 29.0-29.9, adult

== ENCOUNTER 2017-10-24 16:22 | Emergency (ER) | payer OTHER ==
[~2017-10-24 16:22] MED LIST changes: -ASCA500 PO; -ASPEC325 PO; +ASPECOTC PO; +ATOR-24 PO; -CHOL100010 PO; -EZET10TA41 PO; -FLM4 PO; -GARLIQUE; -HYDC25 PO; +HYDR12.55 PO; -OMEG10007 PO; -SAW PALMETTO; +TAMS0.4C38 PO; -VITA400C15 PO; -VITAMIN B COMPLEX; -VITATAB19
[2017-10-24] MEDS ORDERED: CALCIUM CHLORIDE 10% 10 ML SYR IV ONE (16:25)
[2017-10-24] MEDS ORDERED: AMIODARONE HCL INJ 50 MG/ML 3 ML VIAL IV ONE (16:25)
[2017-10-24] MEDS ORDERED: DEXTROSE 5% 100 ML BAG IV ONE (16:25)
[2017-10-24] MEDS ORDERED: ATROPINE SULFATE 0.1 MG/ML 10 ML SYR IV ONE (16:25)
[2017-10-24] MEDS ORDERED: DEXTROSE 50% 50 ML SYR IV ONE (16:25)
[2017-10-24] MEDS ORDERED: LIDOCAINE 2% 20 MG/ML 5ML SYR IV ONE (16:25)
[2017-10-24] MEDS ORDERED: SODIUM BICARB 8.4% INJ 50 MEQ/50 ML SYR IV ONE ×2 (16:25→16:57)
[2017-10-24] MEDS ORDERED: SODIUM CHLORIDE 0.9% 10ML FLUSH IV ONE (16:25)
[2017-10-24 16:29] VITALS: PULSE 161
[2017-10-24] MEDS ORDERED: DOPamine 400MG / 250ML D5W ONE (16:30)
[2017-10-24] MEDS ORDERED: NovoLIN-R INSULIN PER UNIT CHARGE ONE (16:37)
--- NOTE | 2017-10-24 16:37 | EMERGENCY ROOM VISIT NOTE ---
History Report prepared by Naunibmarky: Gilberto Salmeron Under the Supervision of: Dr. Rusesll Bosch M.D. First contact with patient: 16:20 Stated Complaint: CARDIAC ARREST History of Present Illness HPI is limited secondary to cardiac arrest. The patient is a 87 year old male who presents to the Emergency Room via EMS due to a recent cardiac arrest beginning 45 minutes ago. EMS states that the patient was not feeling well so he called a friend. Friend then found the patient on the floor and called for EMS. EMS states that 5 rhythm checks were performed on the patient. Patient was also given 4 rounds of epinephrine. Source of History: patient History Limited By: cardiac arrest Onset: 45 minutes ago Position: chest Timing: constant Modifying Factors (Relieving): other (None) Review of Systems ROS is limited secondary to cardiac arrest. Past Medical & Surgical Medical Problems: (1) CHF (congestive heart failure) (2) Hypertension (3) Kidney stones (4) IA (myocardial infarction) (5) Peripheral vascular disease Surgical Problems: (1) History of carotid endarterectomy (2) History of cataract surgery Family History Omitted secondary to age. Social History Smoking Status: Former Smoker Alcohol Use: none Marital Status: Housing Status: lives alone Occupation Status: retired Current/Historical Medications Unable to Obtain Active Prescriptions or Reported Meds Physical Exam Vital Signs Date Time Temp Pulse Resp B/P (MAP) Pulse Ox O2 Delivery O2 Flow Rate FiO2 10/24/17 17:40 100 10/24/17 16:29 161 Physical Exam GENERAL: Unresponsive, GCS 3. Tommie Device doing compressions EYES: No scleral icterus, fixed mid pupils. ENT: Mucous membranes moist, no nasal congestion. NECK: Trachea is midline, no masses, no swelling. RESPIRATORY: Equal chest rise with ventilation, crackles bilaterally with very junky lung sounds. CARDIOVASCULAR: Pulses consistent with Tommie Compressions. GASTROINTESTINAL: Abdomen soft. Bowel sounds not appreciated. No masses appreciated. EXTREMITIES: weak pulses appreciated. NEUROLOGIC: Unresponsive, GCS 3. SKIN: No rash, no jaundice. Medical Decision & Procedures Laboratory Results Test 10/24/17 16:31 10/24/17 16:58 Bedside Hemoglobin 13.9 g/dl (14.0-18.0) Bedside Hematocrit 41 % (42-52) Bedside Sodium 137 mEq/L (135-144) Bedside Potassium 6.4 mEq/L (3.3-5.0) Bedside Chloride 108 mEq/L (101-112) Bedside Total CO2 18 mEq/l (24-31) Anion Gap 18.0 mmol/L (16-25) Bedside Blood Urea Nitrogen 89 mg/dl (7-18) Bedside Creatinine 2.4 mg/dl (0.6-1.3) Bedside Glucose (other) 160 mg/dl (70-99) Bedside Ionized Calcium (Stormy) 1.04 mmol/l (1.12-1.32) Bedside Blood Gas pH (LAB) 7.04 (7.35-7.45) Bedside Blood Gas pCO2 (LAB) 114 mmHg (35-46) Bedside Blood Gas pO2 (LAB) 119 mmHg (80-95) Bedside Blood Gas HCO3 (LAB) 31 meq/L (19-24) Bedside Blood Gas Total CO2 34 mEq/l (24-31) Bedside Blood Gas Base Excess (LAB) 0.0 meq/L (-9-1.8) Bedside Blood Gas O2 Saturation 96.0 % (90-95) Laboratory results as reviewed by me. Procedure Endotracheal Intubation Indication: Cardiac Arrest with brief ROSC The patient was being bagged by respiratory with BVM. Suction, airway equipment , respiratory equipment, and appropriate personnel were prepared prior to the initiation of the procedure. A time out was taken. Induction was performed with nothing as patient GCS 3. The airway was easily visualized utilizing a GlideScope #4 blade. A 7.5 size ETT tube was placed atraumatically to 24 cm using standard technique. The cuff inflated without signs of malfunction. There were bilateral breath sounds, positive colormetric change, no gastric sounds, a good capnography waveform, and post procedure pulse oximetry was 82% which eventually went up after suctioning. There were no complications. Of note there was frothy pulmonary edema noted on intubation which was copiously suctioned and sats did improve (when he was not in cardiac arrest). Cardioversion Indication: Ventricular Tachycardia Written consent was not obtained as patient in cardiac arrest. Dr Pete agreed with Cardioversion. At this time, the risks of the procedure are less than the risks of NOT performing the procedure. A time out was taken and the correct patient and procedure identified. The patient was already intubated. Sedation was not used as cardiac arrest with GCS 3T. The biphasic defibrillator was set to 360 joules of energy and synched. After confirmation of sedation and "all clear" safety check the synchronized shock was delivered. This resulted in successful conversion of the dysrhythmia back into sinus rhythm. CPR Indication: Cardiac Arrest Patient with PEA and Asystole multiple times throughout stay. I actively managed Tommie Device providing compressions to patient. This was used throughout most of 50 minutes of code with periodic ROSC and shortly there- after requiring turning Tommie Device back on. I personally managed and did this. ED Course 1623: The patient was evaluated in room A1. A complete history and physical exam was performed. I was at bed-side for the entire length of the patient's stay. 1710: Patient declared . Medical Decision 87 yr old male arrives in cardiac arrest who I actived CODE BLUE prior to arrival based on medical command. Apparently complaining of weakness/fatigue, possible chest pain when he collapsed. Pulseless for EMS arrival. Initially pulseless in field for > 45 min thus I initially requested no intubation and continue ACLS protocols. Code in progress for about 1 hour prior to arrival with multiple rounds Epi and compressions without ROSC. Patient arrived at 16: [address] Pete ([facility]) and I at bedside on arrival, I was code leader. Was was given 1 amp epi on arrival while IV established and then appropriate pulse check was done which revealed carotid pulse with irregular tachycardia. He was then intubated by me while Dr Pete attempted with right fem central line. Intubation on first attempt with frothy/bloody pulm edema noted on intubation and copious suction done with improvement in breath sounds. After this he shortly thereafter went PEA, and code was restarted. Over the next 50 minutes he had many rounds of CPR periodically regaining pulses an going through multiple different cardiac rhythms including Afib RVR, Vtach, PEA, Bradycardia, NSR, Asystole. Initial istat revealed hyperK of 6.4, renal insufficiency and BSG 160. He received many rounds of meds including Epi, BiCarb, Calcium, insulin, D50, Amio, lidocaine, NSS, Dopamine, Levophed, etc (Please see code sheet for specifics). Dr Pete placed left subclavian central line for better access after difficulty right fem placement, please see his note for procedure. I reviewed very briefly with Dr Duffy of Interventional Cardiology who agrees that labor relations manager would likely be futile in this patient. After significant amount of time attempting to revive patient is became clear that he would continue going in to arrest. By this time I have discussed with friends who note he is DNR, found POLST in system noting DNR, and Dr Pete has talked to son who notes no further escalation of care. Furthermore both Dr Peet and I feel that any further Shortly thereafter patient once again went in to cardiac arrest and he as pronounced at 17:10. I informed friends of patient while Dr Pete made his son aware of what has occurred. Head Trauma GCS Score: 3 Medication Reconcilliation Current Medication List: was personally reviewed by me Blood Pressure Screening Pt without blood pressure on arrival. He had hypotension when ROSC was obtained. Consults Time Called: 1653 Consulting Physician: Dr. Duffy - [facility] [place] Returned Call: [phone] Discussed the patient's case. Dr. Duffy is in agreement that taking the patient to the [employer] would be a futile endeavor at this point. Impression Primary Impression: Cardiac arrest Additional Impressions: Hyperkalemia Ventricular tachycardia Atrial fibrillation with RVR PEA (Pulseless electrical activity) Critical Care I have personally spent greater than 80 minutes of critical care time in the direct management of this patient. This was a life/limb threatening event. This includes time spent evaluating patient, direct bedside care, chart review, placing orders, interpretation of diagnostic studies, discussion with consultants, patient, and family members, as well as other required patient management activities. This 80 minutes is in excess of all separately billable procedures. Scribe Attestation The scribe's documentation has been prepared under my direction and personally reviewed by me in its entirety. I confirm that the note above accurately reflects all work, treatment, procedures, and medical decision making performed by me. Departure Information Dispostion Other () Prescriptions Unable to Obtain Active Prescriptions or Reported Meds Problem Qualifiers
[2017-10-24] MEDS ORDERED: DEXTROSE 50% 50 ML SYR ONE (16:38)
[2017-10-24 16:44] LABS: ISTAT CREATININE 2.4 mg/dl (0.6-1.3); ISTAT IONIZED CALCIUM 1.04 mmol/l (1.12-1.32); ISTAT POTASSIUM 6.4 mEq/L (3.3-5.0)
[2017-10-24] MEDS ORDERED: DEXTROSE 5% 100 ML BAG ONE (16:53)
[2017-10-24] MEDS ORDERED: NOREPINEPHRINE BIT INJ 4 MG in DEXTROSE 5% 250ML 250 ML IV PRN (17:00)
--- NOTE | 2017-10-24 17:15 | Procedure Note ---
Procedure Note Procedure Date October 24, 2017. Central Line Consent obtained: emergent consent implied Time of procedure: 16:30 Performed by: attending Indications: poor venous access, central drug admin. Contraindications: other (cardiac arrest) Prep: chlorhexadine prep Central line lumen: triple Central line location: subclavian (L) Additional details: Selinger technique used, line sutured, good blood return Patient tolerated procedure: other (patient continued in and out of cardiac arrest) Post-procedure vital signs: other (cardiac arrest)
--- NOTE | 2017-10-24 18:01 | Procedure Note ---
Procedure Note Procedure Date October 24, 2017. Central Line Consent obtained: emergent consent implied Time of procedure: 16:00 Performed by: attending Indications: poor venous access, central drug admin. Contraindications: other (Cardiac arrest) Prep: chlorhexadine prep Central line lumen: triple Central line location: femoral (R) Additional details: other (I was able to cannulate the right femoral vein 2, significant difficulty placing guidewire and procedure was aborted) CXR: other (Not indicated) Patient tolerated procedure: other (Patient an active cardiac arrest) Comments: This represents to independent attempts to cannulate the right femoral vein, access was achieved twice, the guidewire had significant difficulty in placement and the procedure was aborted 2.
--- NOTE | 2017-10-24 18:06 | Medical Consult ---
Consultation Note Date of Service October 24, 2017. Consultation Note I assisted Dr. Bosch with resuscitative efforts of this patient. Please refer to the code flow sheet for further details. Ultimately I contacted the patient's son Jack and updated him of the situation during 1 of the times that the patient had a cardiac rhythm. Given the significant prolonged downtime and the fact we were ultimately able to find a copy of the patient's living will which stated he did not want cardiac resuscitative efforts , and holding of life -sustaining treatment and measures in an end-stage terminal condition was felt that if the patient was to again lose a perfusing rhythm we would stop our heroic measures. This occurred again and the patient was pronounced by Dr. Bosch. I contacted Jack again and informed him that his father had indeed .
== END 2017-10-24 17:10 | disposition expired ==
LOC: C.EDA 16:24 → MERGE 16:24 → EDBD 16:24 → C.EDA 17:10
DX: I46.9 Cardiac arrest, cause unspecified (principal); E87.5 Hyperkalemia; I47.2 Ventricular tachycardia; I48.91 Unspecified atrial fibrillation; I50.9 Heart failure, unspecified; I11.0 Hypertensive heart disease with heart failure; I73.9 Peripheral vascular disease, unspecified; I25.2 Old myocardial infarction; Z87.891 Personal history of nicotine dependence